=== PATIENT | female | born 1970 | race Caucasian/White ===

== ENCOUNTER 2022-08-20 11:39 | Inpatient (IN) | payer BC ==
[~2022-08-20] VITALS: Ht 167.6 cm; Wt 61.4 kg
[~2022-08-20 11:39] MED LIST: DOXY100C76 PO; LEVO50TA PO; TRAN650T2 PO
[2022-08-20] MEDS ORDERED: normal saline 1000ML IV soln IVB ONE ×2 (11:45→13:50)
[2022-08-20] MEDS ORDERED: ondansetron/PF 4mg/2ml inj IV ONE (11:45)
[2022-08-20 12:06] LABS: BASOPHILS % (AUTO) 0.7 % (0-1); EOSINOPHILS # (AUTO) 0.1 X10'3 (0-0.9); EOSINOPHILS % (AUTO) 1.7 % (0-6); HEMATOCRIT 40.7 % (35.0-45.0); HEMOGLOBIN 13.8 g/dl (12.0-16.0); LYMPHOCYTES # (AUTO) 2.4 X10'3 (1.1-4.8); LYMPHOCYTES % (AUTO) 36.2 % (21-51); MEAN CORPUSCULAR HEMOGLOBIN 29.6 PG (27.0-31.0); MEAN CORPUSCULAR HGB CONC 34.1 g/dL (33.0-36.5); MEAN CORPUSCULAR VOLUME 86.8 FL (78-98); MEAN PLATELET VOLUME 7.3 FL (7.4-10.4); MONOCYTES # (AUTO) 0.5 X10'3 (0-0.9); MONOCYTES % (AUTO) 7.7 % (2-12); NEUTROPHILS # (AUTO) 3.5 X10'3 (1.8-7.7); NEUTROPHILS % (AUTO) 53.7 % (42-75); PLATELET COUNT 398 X10'3 (140-440); RED BLOOD COUNT 4.69 X10'6 (4.20-5.60); RED CELL DISTRIBUTION WIDTH 12.3 % (11.5-14.5); WHITE BLOOD COUNT 6.5 X10'3 (4.5-11.0)
[2022-08-20 12:13] LABS: D-DIMER 0.32 MG/L FEU (0-0.50)
[2022-08-20 12:17] LABS: ALANINE AMINOTRANSFERASE 33 U/L (12-78); ALBUMIN 3.9 G/DL (3.4-5.0); ALBUMIN/GLOBULIN RATIO 1.2 (1.1-1.5); ALKALINE PHOSPHATASE 86 IU/L (46-116); ANION GAP 8 (8-16); ASPARTATE AMINO TRANSFERASE 28 U/L (10-37); BILIRUBIN,TOTAL 0.3 MG/DL (0.1-1.0); BLOOD UREA NITROGEN 15 MG/DL (7-18); BUN/CREATININE RATIO 25.4 (6.6-38.0); CHLORIDE 102 MMOL/L (99-107); CREATININE 0.59 MG/DL (0.40-0.90); GLUCOSE 101 MG/DL (70-104); POTASSIUM 3.5 MMOL/L (3.5-5.1); SODIUM 136 MMOL/L (135-145); TOTAL CARBON DIOXIDE 25.9 MMOL/L (24-32); TOTAL PROTEIN 7.2 G/DL (6.4-8.2); eGFR > 90 ML/MIN
[2022-08-20] MEDS ORDERED: LEVO25TA7 PO (14:25)
[2022-08-20] MEDS ORDERED: ZOLP10TA PO (14:25)
[2022-08-20 14:36] LABS: CLARITY,URINE CLEAR (Clear); GLUCOSE, URINE NEGATIVE (Neg); KETONES,URINE NEGATIVE (Neg); LEUKOCYTE ESTERASE ,URINE TRACE (Neg); NITRITES, URINE NEGATIVE (Neg); OCCULT BLOOD,URINE MODERATE (Neg); PH,URINE 6.5 (4.8-8.0); PROTEIN,URINE NEGATIVE (Neg); UROBILINOGEN,URINE 0.2 E.U/dL (0.2-1.0)
[2022-08-20 14:37] LABS: COLOR,URINE STRAW (Yellow); UA COLLECTION TYPE CLN CATCH MIDSTREAM
[2022-08-20 14:49] LABS: BACTERIA,URINE 1+ /HPF (Neg); MUCUS STRANDS NONE SEEN /LPF (Neg); SQUAMOUS EPITHELIAL CELL,UR FEW /LPF (FEW); WBC,URINE 0-4 /HPF (0-4)
[2022-08-20] MEDS ORDERED: magnesium 4gm in 100ml NS 100 ML IV PRN (15:15)
[2022-08-20] MEDS ORDERED: acetaminophen 325mg tablet PO PRN ×2 (15:15→22:00)
[2022-08-20] MEDS ORDERED: zolpidem 5mg tablet PO PRN (15:15)
[2022-08-20] MEDS ORDERED: potassium Cl 40MEQ/1/2NS 520ml 520 ML IV PRN (15:15)
[2022-08-20] MEDS ORDERED: ondansetron/PF 4mg/2ml inj IV PRN (15:15)
[2022-08-20] MEDS ORDERED: docusate sod 100mg capsule PO PRN (15:15)
[2022-08-20] MEDS ORDERED: mag hydrox/Alum hydrox/simeth 30ml oral suspension PO PRN (15:15)
[2022-08-20] MEDS ORDERED: potassium Cl 20 mEq SR tablet PO PRN ×2 (15:15)
[2022-08-20 20:00] VITALS: BP 124/78
[2022-08-20] MEDS ORDERED: K and/or MAG REPLACEMENT MC SCH (20:00)
[2022-08-20] MEDS ORDERED: TYPE IN GENERIC & BRAND NAME OF PATIENT MED STRENGTH & FORM PO SCH (21:00)
--- NOTE | 2022-08-20 23:35 | NUR ---
Tele Neuro completed at this time.
[2022-08-21] VITALS: BP_SYST 108; BP_SYST 114; BP_SYST 119; BP_DIAS 71; BP_DIAS 73; BP_DIAS 74
--- NOTE | 2022-08-21 00:04 | NUR ---
Paged MD Albert with recommendation from Tele Neuro MD Avila for a CTA of head and neck to see if he would like the order placed tonight.
[2022-08-21 06:20] LABS: EOSINOPHILS # (AUTO) 0.2 X10'3 (0-0.9); EOSINOPHILS % (AUTO) 4.7 % (0-6); HEMATOCRIT 37.6 % (35.0-45.0); HEMOGLOBIN 12.3 g/dl (12.0-16.0); LYMPHOCYTES # (AUTO) 1.4 X10'3 (1.1-4.8); LYMPHOCYTES % (AUTO) 41.8 % (21-51); MEAN CORPUSCULAR HEMOGLOBIN 28.9 PG (27.0-31.0); MEAN CORPUSCULAR HGB CONC 32.7 g/dL (33.0-36.5); MEAN CORPUSCULAR VOLUME 88.4 FL (78-98); MEAN PLATELET VOLUME 7.3 FL (7.4-10.4); MONOCYTES # (AUTO) 0.3 X10'3 (0-0.9); MONOCYTES % (AUTO) 9.3 % (2-12); NEUTROPHILS # (AUTO) 1.4 X10'3 (1.8-7.7); NEUTROPHILS % (AUTO) 43.2 % (42-75); PLATELET COUNT 325 X10'3 (140-440); RED BLOOD COUNT 4.26 X10'6 (4.20-5.60); RED CELL DISTRIBUTION WIDTH 12.3 % (11.5-14.5); WHITE BLOOD COUNT 3.3 X10'3 (4.5-11.0)
[2022-08-21 06:39] LABS: ALANINE AMINOTRANSFERASE 29 U/L (12-78); ALBUMIN 3.2 G/DL (3.4-5.0); ALBUMIN/GLOBULIN RATIO 1.1 (1.1-1.5); ALKALINE PHOSPHATASE 78 IU/L (46-116); ANION GAP 4 (8-16); ASPARTATE AMINO TRANSFERASE 23 U/L (10-37); BILIRUBIN,TOTAL 0.3 MG/DL (0.1-1.0); BLOOD UREA NITROGEN 11 MG/DL (7-18); BUN/CREATININE RATIO 19.6 (6.6-38.0); CALCIUM 8.7 MG/DL (8.5-10.1); CHLORIDE 105 MMOL/L (99-107); CREATININE 0.56 MG/DL (0.40-0.90); GLUCOSE 87 MG/DL (70-104); MAGNESIUM 1.8 MG/DL (1.5-2.4); POTASSIUM 3.8 MMOL/L (3.5-5.1); SODIUM 139 MMOL/L (135-145); TOTAL PROTEIN 6.2 G/DL (6.4-8.2); eGFR > 90 ML/MIN
[2022-08-21 07:00] VITALS: BP 104/65
[2022-08-21] MEDS ORDERED: levoTHYROXINE 25mcg tablet PO SCH (07:00)
[2022-08-21] MEDS ORDERED: DOXYCYCLINE 100MG CAPSULE PO SCH (08:00)
== END 2022-08-21 11:45 | disposition home or self-care (01) | DRG 301 ==
LOC: ER 11:40 → MERGE 15:25 → ED HOLD 15:25 → EDBEDREQ 19:17 → PCU 3S 19:40
PROVIDERS: ADMIT Family Medicine; ATTEND Family Medicine
DX: I78.0 Hereditary hemorrhagic telangiectasia (principal); R00.0 Tachycardia, unspecified; Z79.899 Other long term (current) drug therapy; Z82.49 Family history of ischemic heart disease and other diseases of the circulatory system; Z87.891 Personal history of nicotine dependence; Z88.0 Allergy status to penicillin; Z88.8 Allergy status to other drugs, medicaments and biological substances
CPT/HCPCS: 36415; 70450; 70544; 70551; 71045; 80053; 81001; 82948; 83735; 84484; 85025; 85379; 87077; 87081; 87088; 87186; 93005; 93306; 96361; 96374; 99291; G0378; J2405; J7030

== ENCOUNTER 2022-09-02 13:44 | Outpatient (CLI) | payer BC ==
[~2022-09-02 13:44] MED LIST changes: +LEVO25TA7 PO; -LEVO50TA PO; +ZOLP10TA PO
[2022-09-02 14:22] LABS: BASOPHILS % (AUTO) 0.5 % (0-1); EOSINOPHILS # (AUTO) 0.1 X10'3 (0-0.9); EOSINOPHILS % (AUTO) 1.9 % (0-6); HEMATOCRIT 38.6 % (35.0-45.0); HEMOGLOBIN 12.6 g/dl (12.0-16.0); LYMPHOCYTES # (AUTO) 1.4 X10'3 (1.1-4.8); LYMPHOCYTES % (AUTO) 24.4 % (21-51); MEAN CORPUSCULAR HEMOGLOBIN 28.7 PG (27.0-31.0); MEAN CORPUSCULAR HGB CONC 32.6 g/dL (33.0-36.5); MEAN CORPUSCULAR VOLUME 88.1 FL (78-98); MEAN PLATELET VOLUME 7.5 FL (7.4-10.4); MONOCYTES # (AUTO) 0.4 X10'3 (0-0.9); MONOCYTES % (AUTO) 7.5 % (2-12); NEUTROPHILS # (AUTO) 3.8 X10'3 (1.8-7.7); NEUTROPHILS % (AUTO) 65.7 % (42-75); PLATELET COUNT 305 X10'3 (140-440); RED BLOOD COUNT 4.38 X10'6 (4.20-5.60); RED CELL DISTRIBUTION WIDTH 12.6 % (11.5-14.5); WHITE BLOOD COUNT 5.8 X10'3 (4.5-11.0)
[2022-09-02 14:32] LABS: % IRON SATURATION 23 % (11-46); IRON 59 UG/DL (49-151); TOTAL IRON BINDING CAPACITY 257 UG/DL (259-388)
[2022-09-02 14:40] LABS: FERRITIN 122 NG/ML (8-252)
== END 2022-09-02 23:59 | disposition home or self-care (01) ==
LOC: LAB 13:44
PROVIDERS: ATTEND Family Medicine
DX: I78.0 Hereditary hemorrhagic telangiectasia (principal); R53.83 Other fatigue; R55 Syncope and collapse; D50.0 Iron deficiency anemia secondary to blood loss (chronic)
CPT/HCPCS: 36415; 82728; 83540; 83550; 85025

== ENCOUNTER 2022-10-03 10:54 | Outpatient (CLI) | payer BC ==
[2022-10-03 11:30] LABS: BASOPHILS % (AUTO) 0.8 % (0-1); EOSINOPHILS # (AUTO) 0.1 X10'3 (0-0.9); EOSINOPHILS % (AUTO) 1.8 % (0-6); HEMATOCRIT 40.6 % (35.0-45.0); HEMOGLOBIN 13.5 g/dl (12.0-16.0); LYMPHOCYTES # (AUTO) 1.2 X10'3 (1.1-4.8); LYMPHOCYTES % (AUTO) 25.6 % (21-51); MEAN CORPUSCULAR HEMOGLOBIN 29.4 PG (27.0-31.0); MEAN CORPUSCULAR HGB CONC 33.2 g/dL (33.0-36.5); MEAN CORPUSCULAR VOLUME 88.3 FL (78-98); MEAN PLATELET VOLUME 7.2 FL (7.4-10.4); MONOCYTES # (AUTO) 0.4 X10'3 (0-0.9); MONOCYTES % (AUTO) 7.3 % (2-12); NEUTROPHILS # (AUTO) 3.1 X10'3 (1.8-7.7); NEUTROPHILS % (AUTO) 64.5 % (42-75); PLATELET COUNT 329 X10'3 (140-440); RED CELL DISTRIBUTION WIDTH 13.3 % (11.5-14.5); WHITE BLOOD COUNT 4.8 X10'3 (4.5-11.0)
[2022-10-03 11:46] LABS: % IRON SATURATION 19 % (11-46); IRON 55 UG/DL (49-151); TOTAL IRON BINDING CAPACITY 297 UG/DL (259-388)
[2022-10-03 11:59] LABS: FERRITIN 33 NG/ML (8-252)
== END 2022-10-03 23:59 | disposition home or self-care (01) ==
LOC: LAB 10:54
PROVIDERS: ATTEND Family Medicine
DX: I78.0 Hereditary hemorrhagic telangiectasia (principal); R53.83 Other fatigue; D50.0 Iron deficiency anemia secondary to blood loss (chronic); R55 Syncope and collapse
CPT/HCPCS: 36415; 82728; 83540; 83550; 85025

== ENCOUNTER 2022-10-04 09:52 | Day surgery (SDC) | payer BC ==
[2022-10-04] VITALS (7 sets, daily range): BP systolic 105–114; BP diastolic 62–73
[~2022-10-04] VITALS: Ht 167.6 cm; Wt 61.4 kg
[2022-10-04] MEDS ORDERED: methylPREDNISolone sod succ 125mg/2ml vial IV ONE (10:45)
[2022-10-04] MEDS ORDERED: iron sucrose complex (VENOFER) 200 MG in NS 100ml IV IV ONE (10:50)
[2022-10-04] MEDS ORDERED: diphenhydrAMINE 25mg capsule PO ONE (10:50)
--- NOTE | 2022-10-04 12:45 | NUR ---
pt discharged in stable condition. piv dc'd canula intact. all belongings sent home with pt. no s/s allergic rx. all belongings sent home with pt. pt ambulated to private vehicle driven by after the procedure.
== END 2022-10-04 12:45 | disposition home or self-care (01) ==
LOC: SSTAY O 09:52
PROVIDERS: ATTEND Family Medicine
DX: R55 Syncope and collapse (principal); I78.0 Hereditary hemorrhagic telangiectasia; Z88.8 Allergy status to other drugs, medicaments and biological substances
CPT/HCPCS: 96374; J1756; J2930; J3490; Q0163

== ENCOUNTER 2022-10-22 08:18 | Outpatient (CLI) | payer BC ==
[2022-10-22 08:54] LABS: BASOPHILS % (AUTO) 1.1 % (0-1); EOSINOPHILS # (AUTO) 0.2 X10'3 (0-0.9); EOSINOPHILS % (AUTO) 5.4 % (0-6); HEMATOCRIT 40.7 % (35.0-45.0); HEMOGLOBIN 13.5 g/dl (12.0-16.0); LYMPHOCYTES % (AUTO) 29.2 % (21-51); MEAN CORPUSCULAR HGB CONC 33.1 g/dL (33.0-36.5); MEAN CORPUSCULAR VOLUME 87.8 FL (78-98); MEAN PLATELET VOLUME 7.4 FL (7.4-10.4); MONOCYTES # (AUTO) 0.3 X10'3 (0-0.9); MONOCYTES % (AUTO) 8.5 % (2-12); NEUTROPHILS # (AUTO) 1.9 X10'3 (1.8-7.7); NEUTROPHILS % (AUTO) 55.8 % (42-75); PLATELET COUNT 341 X10'3 (140-440); RED BLOOD COUNT 4.64 X10'6 (4.20-5.60); RED CELL DISTRIBUTION WIDTH 12.8 % (11.5-14.5); WHITE BLOOD COUNT 3.4 X10'3 (4.5-11.0)
[2022-10-22 09:29] LABS: ALANINE AMINOTRANSFERASE 29 U/L (12-78); ALBUMIN 3.9 G/DL (3.4-5.0); ALBUMIN/GLOBULIN RATIO 1.2 (1.1-1.5); ALKALINE PHOSPHATASE 100 IU/L (46-116); ANION GAP 8 (8-16); ASPARTATE AMINO TRANSFERASE 19 U/L (10-37); BILIRUBIN,TOTAL 0.5 MG/DL (0.1-1.0); BLOOD UREA NITROGEN 17 MG/DL (7-18); BUN/CREATININE RATIO 28.8 (6.6-38.0); CALCIUM 9.2 MG/DL (8.5-10.1); CHLORIDE 103 MMOL/L (99-107); CREATININE 0.59 MG/DL (0.40-0.90); FERRITIN 68 NG/ML (8-252); GLUCOSE 73 MG/DL (70-104); POTASSIUM 4.4 MMOL/L (3.5-5.1); SODIUM 139 MMOL/L (135-145); TOTAL CARBON DIOXIDE 28.5 MMOL/L (24-32); TOTAL PROTEIN 7.1 G/DL (6.4-8.2); eGFR > 90 ML/MIN
== END 2022-10-22 23:59 | disposition home or self-care (01) ==
LOC: LAB 08:18
PROVIDERS: ATTEND Nurse Practitioner Acute Care
DX: I78.0 Hereditary hemorrhagic telangiectasia (principal)
CPT/HCPCS: 36415; 80053; 82728; 85025

== ENCOUNTER 2022-12-18 11:20 | Outpatient (CLI) | payer BC | END 2022-12-18 23:59 | disposition home or self-care (01) | LOC: RAD 11:20 | PROVIDERS: ATTEND Podiatrist Foot & Ankle Surgery | DX: M25.872 Other specified joint disorders, left ankle and foot (principal); M79.672 Pain in left foot; M20.42 Other hammer toe(s) (acquired), left foot; M21.6X2 Other acquired deformities of left foot; M25.375 Other instability, left foot; G57.62 Lesion of plantar nerve, left lower limb; M20.11 Hallux valgus (acquired), right foot; M79.671 Pain in right foot; M20.41 Other hammer toe(s) (acquired), right foot; M20.12 Hallux valgus (acquired), left foot; Z68.22 Body mass index [BMI] 22.0-22.9, adult; Z98.890 Other specified postprocedural states | CPT/HCPCS: 73721 ==

== ENCOUNTER 2023-01-27 08:02 | Outpatient (CLI) | payer BC ==
[2023-01-27 08:51] LABS: BASOPHILS % (AUTO) 0.9 % (0-1); EOSINOPHILS # (AUTO) 0.4 X10'3 (0-0.9); EOSINOPHILS % (AUTO) 8.4 % (0-6); HEMATOCRIT 41.1 % (35.0-45.0); HEMOGLOBIN 13.4 g/dl (12.0-16.0); LYMPHOCYTES # (AUTO) 1.3 X10'3 (1.1-4.8); LYMPHOCYTES % (AUTO) 30.7 % (21-51); MEAN CORPUSCULAR HEMOGLOBIN 28.8 PG (27.0-31.0); MEAN CORPUSCULAR HGB CONC 32.6 g/dL (33.0-36.5); MEAN CORPUSCULAR VOLUME 88.5 FL (78-98); MEAN PLATELET VOLUME 7.5 FL (7.4-10.4); MONOCYTES # (AUTO) 0.3 X10'3 (0-0.9); MONOCYTES % (AUTO) 6.9 % (2-12); NEUTROPHILS # (AUTO) 2.3 X10'3 (1.8-7.7); NEUTROPHILS % (AUTO) 53.1 % (42-75); PLATELET COUNT 371 X10'3 (140-440); RED BLOOD COUNT 4.64 X10'6 (4.20-5.60); RED CELL DISTRIBUTION WIDTH 14.1 % (11.5-14.5); WHITE BLOOD COUNT 4.4 X10'3 (4.5-11.0)
[2023-01-27 08:59] LABS: CLARITY,URINE CLEAR (Clear); COLOR,URINE STRAW (Yellow); GLUCOSE, URINE NEGATIVE (Neg); KETONES,URINE NEGATIVE (Neg); LEUKOCYTE ESTERASE ,URINE NEGATIVE (Neg); NITRITES, URINE NEGATIVE (Neg); OCCULT BLOOD,URINE SMALL (Neg); PROTEIN,URINE NEGATIVE (Neg); UROBILINOGEN,URINE 0.2 E.U/dL (0.2-1.0)
[2023-01-27 09:18] LABS: UA COLLECTION TYPE CLN CATCH MIDSTREAM
[2023-01-27 09:19] LABS: BACTERIA,URINE FEW /HPF (Neg); SQUAMOUS EPITHELIAL CELL,UR MODERATE /LPF (FEW); TRANSITIONAL EPI CELLS,URINE FEW /HPF
[2023-01-27 09:20] LABS: ALANINE AMINOTRANSFERASE 26 U/L (12-78); ALBUMIN/GLOBULIN RATIO 1.2 (1.1-1.5); ALKALINE PHOSPHATASE 116 IU/L (46-116); ANION GAP 8 (8-16); ASPARTATE AMINO TRANSFERASE 20 U/L (10-37); BILIRUBIN,TOTAL 0.5 MG/DL (0.1-1.0); BLOOD UREA NITROGEN 14 MG/DL (7-18); BUN/CREATININE RATIO 22.6 (10.0-20.0); CALCIUM 9.3 MG/DL (8.5-10.1); CHLORIDE 100 MMOL/L (99-107); CHOL/HDL RATIO 2.1 (0.00-4.99); CHOLESTEROL 206 MG/DL (0-200); CREATININE 0.62 MG/DL (0.40-0.90); GLUCOSE 75 MG/DL (70-104); HDL CHOLESTEROL 97 MG/DL (35-60); LDL CHOLESTEROL 92 MG/DL (50-100); POTASSIUM 3.9 MMOL/L (3.5-5.1); SODIUM 136 MMOL/L (135-145); TOTAL CARBON DIOXIDE 28.5 MMOL/L (24-32); TOTAL PROTEIN 7.4 G/DL (6.4-8.2); TRIGLYCERIDES 55 MG/DL (20-135); WBC,URINE 0-4 /HPF (0-4); eGFR > 90 ML/MIN
[2023-01-27 10:01] LABS: % IRON SATURATION 20 % (11-46); IRON 68 UG/DL (49-151); TOTAL IRON BINDING CAPACITY 335 UG/DL (259-388)
[2023-01-27 10:19] LABS: FERRITIN 17 NG/ML (8-252)
[2023-01-28 12:52] LABS: ESTRADIOL 43.8 pg/mL (.); FSH, SERUM 84.1 mIU/mL (.); THIIODOTHRONINE, FREE, SERUM 3.5 pg/mL (2.0-4.4)
[2023-01-30 17:14] LABS: TESTOSTERONE, FREE, DIRECT 0.8 pg/mL (0.0-4.2)
== END 2023-01-27 23:59 | disposition home or self-care (01) ==
LOC: LAB 08:02
PROVIDERS: ATTEND Physician Assistant Medical
DX: E03.9 Hypothyroidism, unspecified (principal); N95.1 Menopausal and female climacteric states; E55.9 Vitamin D deficiency, unspecified; D64.9 Anemia, unspecified; N39.0 Urinary tract infection, site not specified; E53.9 Vitamin B deficiency, unspecified
CPT/HCPCS: 36415; 80053; 80061; 81001; 82306; 82607; 82627; 82670; 82728; 83001; 83540; 83550; 84402; 84403; 84439; 84443; 84481; 85025

== ENCOUNTER 2023-03-03 08:57 | Outpatient (CLI) | payer BC ==
[2023-03-03 09:33] LABS: BASOPHILS # (AUTO) 0.1 X10'3 (0-0.2); BASOPHILS % (AUTO) 1.2 % (0-1); EOSINOPHILS # (AUTO) 0.2 X10'3 (0-0.9); EOSINOPHILS % (AUTO) 5.3 % (0-6); HEMATOCRIT 41.1 % (35.0-45.0); HEMOGLOBIN 13.4 g/dl (12.0-16.0); LYMPHOCYTES # (AUTO) 1.4 X10'3 (1.1-4.8); LYMPHOCYTES % (AUTO) 31.6 % (21-51); MEAN CORPUSCULAR HEMOGLOBIN 28.5 PG (27.0-31.0); MEAN CORPUSCULAR HGB CONC 32.5 g/dL (33.0-36.5); MEAN CORPUSCULAR VOLUME 87.7 FL (78-98); MEAN PLATELET VOLUME 7.4 FL (7.4-10.4); MONOCYTES # (AUTO) 0.4 X10'3 (0-0.9); NEUTROPHILS # (AUTO) 2.4 X10'3 (1.8-7.7); NEUTROPHILS % (AUTO) 53.9 % (42-75); PLATELET COUNT 368 X10'3 (140-440); RED BLOOD COUNT 4.69 X10'6 (4.20-5.60); RED CELL DISTRIBUTION WIDTH 13.3 % (11.5-14.5); WHITE BLOOD COUNT 4.4 X10'3 (4.5-11.0)
[2023-03-03 10:02] LABS: FERRITIN 11 NG/ML (8-252)
[2023-03-03 10:20] LABS: % IRON SATURATION 15 % (11-46); IRON 49 UG/DL (49-151); TOTAL IRON BINDING CAPACITY 337 UG/DL (259-388)
== END 2023-03-03 23:59 | disposition home or self-care (01) ==
LOC: LAB 08:57
PROVIDERS: ATTEND Family Medicine
DX: D50.0 Iron deficiency anemia secondary to blood loss (chronic) (principal)
CPT/HCPCS: 36415; 82728; 83540; 83550; 85025

== ENCOUNTER 2023-03-31 07:53 | Outpatient (CLI) | payer BC ==
[~2023-03-31 07:53] MED LIST changes: +DOXY-356 PO; -DOXY100C76 PO
[2023-03-31 08:22] LABS: BASOPHILS % (AUTO) 1.1 % (0-1); EOSINOPHILS # (AUTO) 0.3 X10'3 (0-0.9); EOSINOPHILS % (AUTO) 6.6 % (0-6); HEMATOCRIT 40.6 % (35.0-45.0); HEMOGLOBIN 13.3 g/dl (12.0-16.0); LYMPHOCYTES # (AUTO) 1.3 X10'3 (1.1-4.8); LYMPHOCYTES % (AUTO) 31.8 % (21-51); MEAN CORPUSCULAR HEMOGLOBIN 29.2 PG (27.0-31.0); MEAN CORPUSCULAR HGB CONC 32.8 g/dL (33.0-36.5); MEAN PLATELET VOLUME 7.2 FL (7.4-10.4); MONOCYTES # (AUTO) 0.4 X10'3 (0-0.9); MONOCYTES % (AUTO) 10.2 % (2-12); NEUTROPHILS % (AUTO) 50.3 % (42-75); PLATELET COUNT 319 X10'3 (140-440); RED BLOOD COUNT 4.56 X10'6 (4.20-5.60); RED CELL DISTRIBUTION WIDTH 13.6 % (11.5-14.5)
[2023-03-31 08:58] LABS: % IRON SATURATION 16 % (11-46); IRON 47 UG/DL (49-151); TOTAL IRON BINDING CAPACITY 291 UG/DL (259-388)
[2023-03-31 09:13] LABS: FERRITIN 43 NG/ML (8-252)
== END 2023-03-31 23:59 | disposition home or self-care (01) ==
LOC: LAB 07:53
PROVIDERS: ATTEND Family Medicine
DX: D50.0 Iron deficiency anemia secondary to blood loss (chronic) (principal)
CPT/HCPCS: 36415; 82728; 83540; 83550; 85025

== ENCOUNTER 2023-04-24 08:03 | Day surgery (SDC) | payer BC ==
[~2023-04-24] VITALS: Ht 167.6 cm; Wt 59.1 kg
[2023-04-24] VITALS (7 sets, daily range): BP systolic 105–118; BP diastolic 56–78; PULSE 83–93; RESP 20; TEMP 97.9; O2SAT 95–98
[~2023-04-24 08:03] MED LIST changes: -ZOLP10TA PO
[2023-04-24] MEDS ORDERED: iron sucrose complex (VENOFER) 200 MG in NS 100ml IV IV ONE (10:15)
[2023-04-24] MEDS ORDERED: LORazepam 2 mg/ml vial IV ONE (10:15)
[2023-04-24] MEDS ORDERED: methylPREDNISolone sod succ 125mg/2ml vial IV ONE (10:15)
[2023-04-24] MEDS ORDERED: diphenhydrAMINE 50 mg/ml inj IV ONE (10:15)
== END 2023-04-24 12:40 | disposition home or self-care (01) ==
LOC: SSTAY O 08:03
PROVIDERS: ATTEND Family Medicine
DX: I78.0 Hereditary hemorrhagic telangiectasia (principal); D50.0 Iron deficiency anemia secondary to blood loss (chronic)
CPT/HCPCS: 36410; 96365; 96368; J1200; J1756; J2060; J2930; J3490; J7030

== ENCOUNTER 2023-06-11 10:23 | Outpatient (CLI) | payer BC ==
[2023-06-11 11:31] LABS: BASOPHILS # (AUTO) 0.1 X10'3 (0-0.2); BASOPHILS % (AUTO) 1.2 % (0-1); EOSINOPHILS # (AUTO) 0.1 X10'3 (0-0.9); EOSINOPHILS % (AUTO) 3.2 % (0-6); HEMATOCRIT 40.7 % (35.0-45.0); HEMOGLOBIN 13.4 g/dl (12.0-16.0); LYMPHOCYTES # (AUTO) 1.5 X10'3 (1.1-4.8); LYMPHOCYTES % (AUTO) 34.1 % (21-51); MEAN CORPUSCULAR VOLUME 87.8 FL (78-98); MEAN PLATELET VOLUME 7.4 FL (7.4-10.4); MONOCYTES # (AUTO) 0.3 X10'3 (0-0.9); NEUTROPHILS # (AUTO) 2.3 X10'3 (1.8-7.7); NEUTROPHILS % (AUTO) 53.5 % (42-75); PLATELET COUNT 328 X10'3 (140-440); RED BLOOD COUNT 4.63 X10'6 (4.20-5.60); RED CELL DISTRIBUTION WIDTH 13.7 % (11.5-14.5); WHITE BLOOD COUNT 4.3 X10'3 (4.5-11.0)
[2023-06-11 11:51] LABS: % IRON SATURATION 24 % (11-46); IRON 71 UG/DL (49-151); TOTAL IRON BINDING CAPACITY 298 UG/DL (259-388)
[2023-06-11 11:59] LABS: FERRITIN 26 NG/ML (8-252)
== END 2023-06-11 23:59 | disposition home or self-care (01) ==
LOC: LAB 10:23
PROVIDERS: ATTEND Family Medicine
DX: D50.0 Iron deficiency anemia secondary to blood loss (chronic) (principal)
CPT/HCPCS: 36415; 82728; 83540; 83550; 85025

== ENCOUNTER 2023-08-14 10:37 | Day surgery (SDC) | payer BC ==
[~2023-08-14] VITALS: Ht 167.6 cm; Wt 59.0 kg
[2023-08-14] VITALS (8 sets, daily range): BP systolic 105–134; BP diastolic 52–78; PULSE 84–94; RESP 16–20; TEMP 98–98.2; O2SAT 97–98
[2023-08-14] MEDS ORDERED: diphenhydrAMINE 50 mg/ml inj IV PRN (11:10)
[2023-08-14] MEDS ORDERED: iron sucrose complex (VENOFER) 200 MG in NS 100ml IV IV ONE (11:10)
[2023-08-14] MEDS ORDERED: LORazepam 2 mg/ml vial IV PRN (11:10)
[2023-08-14] MEDS ORDERED: methylPREDNISolone sod succ 125mg/2ml vial IV ONE (11:10)
== END 2023-08-14 14:00 | disposition home or self-care (01) ==
LOC: SSTAY O 10:37
PROVIDERS: ATTEND Family Medicine
DX: I78.0 Hereditary hemorrhagic telangiectasia (principal); D50.0 Iron deficiency anemia secondary to blood loss (chronic)
CPT/HCPCS: 96374; J1200; J1756; J2060; J2930; J3490; J7030

== ENCOUNTER → 2023-10-03 | Outpatient (CLI) | payer BC ==
[2023-10-03 11:34] LABS: BASOPHILS # (AUTO) 0.1 X10'3 (0-0.2); BASOPHILS % (AUTO) 1.8 % (0-1); EOSINOPHILS # (AUTO) 0.3 X10'3 (0-0.9); EOSINOPHILS % (AUTO) 7.9 % (0-6); HEMOGLOBIN 14.1 g/dl (12.0-16.0); LYMPHOCYTES # (AUTO) 1.3 X10'3 (1.1-4.8); LYMPHOCYTES % (AUTO) 31.6 % (21-51); MEAN CORPUSCULAR HEMOGLOBIN 28.7 PG (27.0-31.0); MEAN CORPUSCULAR HGB CONC 32.8 g/dL (33.0-36.5); MEAN CORPUSCULAR VOLUME 87.5 FL (78-98); MEAN PLATELET VOLUME 7.9 FL (7.4-10.4); MONOCYTES # (AUTO) 0.3 X10'3 (0-0.9); MONOCYTES % (AUTO) 8.3 % (2-12); NEUTROPHILS # (AUTO) 2.1 X10'3 (1.8-7.7); NEUTROPHILS % (AUTO) 50.4 % (42-75); PLATELET COUNT 379 X10'3 (140-440); RED BLOOD COUNT 4.92 X10'6 (4.20-5.60); RED CELL DISTRIBUTION WIDTH 13.2 % (11.5-14.5); WHITE BLOOD COUNT 4.2 X10'3 (4.5-11.0)
== END | disposition home or self-care (01) ==
LOC: RAD 09:11
PROVIDERS: ATTEND Registered Nurse
DX: Z01.818 Encounter for other preprocedural examination (principal); S91.302A Unspecified open wound, left foot, initial encounter; T81.49XA Infection following a procedure, other surgical site, initial encounter; M19.072 Primary osteoarthritis, left ankle and foot; M25.475 Effusion, left foot; Z98.890 Other specified postprocedural states; M71.072 Abscess of bursa, left ankle and foot; Z79.01 Long term (current) use of anticoagulants; X58.XXXA Exposure to other specified factors, initial encounter; Y93.89 Activity, other specified; Y92.89 Other specified places as the place of occurrence of the external cause; Y99.8 Other external cause status
CPT/HCPCS: 36415; 73718; 85025; 85651; 86140

== ENCOUNTER 2023-10-21 05:28 | Day surgery (SDC) | payer BC ==
[2023-10-21] VITALS (7 sets, daily range): BP systolic 98–117; BP diastolic 61–78; PULSE 70–85; RESP 9–16; TEMP 98.4; O2SAT 96–99
[~2023-10-21] VITALS: Ht 167.6 cm; Wt 61.2 kg
[2023-10-21] MEDS ORDERED: clindamycin-Cleocin 900mg/D5W 50 ML IV ONE (05:30)
[2023-10-21] MEDS ORDERED: ringers solution, lacted 1,000 ML IV SCH (05:30)
[2023-10-21] MEDS ORDERED: famotidine 20mg tablet PO ONE (05:30)
[2023-10-21] MEDS ORDERED: vancomycin 1,000mg inj ONE (06:38)
[2023-10-21] MEDS ORDERED: BUPIVAcaine 2.5mg/ml inj 50ml vial (contains preservative) ONE (06:39)
[2023-10-21 07:15] LABS: BASOPHILS # (AUTO) 0.1 X10'3 (0-0.2); BASOPHILS % (AUTO) 1.5 % (0-1); EOSINOPHILS # (AUTO) 0.4 X10'3 (0-0.9); EOSINOPHILS % (AUTO) 10.4 % (0-6); LYMPHOCYTES # (AUTO) 1.4 X10'3 (1.1-4.8); LYMPHOCYTES % (AUTO) 38.1 % (21-51); MEAN CORPUSCULAR HEMOGLOBIN 28.5 PG (27.0-31.0); MEAN CORPUSCULAR VOLUME 86.5 FL (78-98); MEAN PLATELET VOLUME 7.1 FL (7.4-10.4); MONOCYTES # (AUTO) 0.3 X10'3 (0-0.9); MONOCYTES % (AUTO) 9.5 % (2-12); NEUTROPHILS # (AUTO) 1.5 X10'3 (1.8-7.7); NEUTROPHILS % (AUTO) 40.5 % (42-75); PRE OP HEMATOCRIT 38.1 % (35.0-45.0); PRE OP HEMOGLOBIN 12.6 g/dL (12.0-16.0); PRE OP PLATELET COUNT 310 X10'3 (140-440); PRE OP WHITE BLOOD COUNT 3.7 10'3 (4.8-10.8); RED CELL DISTRIBUTION WIDTH 13.2 % (11.5-14.5)
[2023-10-21] MEDS ORDERED: sevoflurane 250ml liquid IH ONE (07:20)
[2023-10-21] MEDS ORDERED: dexamethasone sod phosphate 10mg/ml inj ONE (07:20)
[2023-10-21] MEDS ORDERED: cloNIDine hcl/PF 100mcg/ml inj ONE (07:25)
[2023-10-21] MEDS ORDERED: fentaNYL/PF 50MCG/1 ML 2ML syringe ONE (07:27)
[2023-10-21] MEDS ORDERED: midazolam 1 mg/ML 2ml injection ONE (07:27)
[2023-10-21 07:29] LABS: PRE OP PROTIME 11.2 SECONDS (9.0-12.0)
[2023-10-21 07:34] LABS: ALBUMIN 3.5 G/DL (3.4-5.0); ALKALINE PHOSPHATASE 74 IU/L (46-116); BLOOD UREA NITROGEN 17 MG/DL (7-18); BUN/CREATININE RATIO 27.4 (10.0-20.0); CHLORIDE 105 MMOL/L (99-107); CREATININE 0.62 MG/DL (0.40-0.90); PRE OP ALT 66 U/L (30-65); PRE OP ANION GAP 4 (8-16); PRE OP AST 31 U/L (10-37); PRE OP BILIRUB, TOTAL 0.4 MG/DL (0.0-1.0); PRE OP GLUCOSE 86 MG/DL (70-104); PRE OP SODIUM 140 MMOL/L (135-145); TOTAL CARBON DIOXIDE 30.6 MMOL/L (24-32); TOTAL PROTEIN 6.9 G/DL (6.4-8.2); eCRCL 96 ML/MIN; eGFR > 90 ML/MIN
[2023-10-21] MEDS ORDERED: propofol inj 20 ML IV ONE (07:44)
[2023-10-21] MEDS ORDERED: LIDOcaine 2% (20mg/ml) 5ml vial ONE (07:44)
[2023-10-21] MEDS ORDERED: ePHEDrine 50MG/ML INJ. ONE (07:49)
[2023-10-21] MEDS ORDERED: ondansetron/PF 4mg/2ml inj ONE (08:16)
== END 2023-10-21 09:14 | disposition home or self-care (01) ==
LOC: PAS 05:28
PROVIDERS: ATTEND Orthopaedic Surgery Orthopaedic Trauma
DX: T81.49XA Infection following a procedure, other surgical site, initial encounter (principal); I78.0 Hereditary hemorrhagic telangiectasia; E03.9 Hypothyroidism, unspecified; Z88.0 Allergy status to penicillin; Z79.899 Other long term (current) drug therapy; Z72.89 Other problems related to lifestyle; Z98.890 Other specified postprocedural states; Z98.818 Other dental procedure status; Y83.8 Other surgical procedures as the cause of abnormal reaction of the patient, or of later complication, without mention of misadventure at the time of the procedure; Y92.89 Other specified places as the place of occurrence of the external cause
CPT/HCPCS: 10180; 36415; 80053; 85025; 85610; 85730; 87070; 87075; 87077; 87102; 87186; A6222; J0735; J1100; J2250; J2405; J2704; J3010; J3370; J3490; J7030; J7120; Z7506; Z7508; Z7512; A4618; A6446; A6449; A7000

== ENCOUNTER 2024-01-31 18:46 | Emergency (ER) | payer BC ==
[~2024-01-31] VITALS: Ht 167.6 cm; Wt 61.4 kg
[2024-01-31 18:48] VITALS: TEMP 98.9
[2024-01-31 19:34] LABS: BASOPHILS % (AUTO) 0.2 % (0-1); EOSINOPHILS # (AUTO) 0.1 X10'3 (0-0.9); EOSINOPHILS % (AUTO) 0.6 % (0-6); HEMATOCRIT 35.5 % (35.0-45.0); HEMOGLOBIN 11.8 g/dl (12.0-16.0); LYMPHOCYTES # (AUTO) 1.8 X10'3 (1.1-4.8); LYMPHOCYTES % (AUTO) 19.6 % (21-51); MEAN CORPUSCULAR HEMOGLOBIN 27.3 PG (27.0-31.0); MEAN CORPUSCULAR HGB CONC 33.2 g/dL (33.0-36.5); MEAN CORPUSCULAR VOLUME 82.4 FL (78-98); MEAN PLATELET VOLUME 7.4 FL (7.4-10.4); MONOCYTES # (AUTO) 0.5 X10'3 (0-0.9); MONOCYTES % (AUTO) 4.9 % (2-12); NEUTROPHILS % (AUTO) 74.7 % (42-75); PLATELET COUNT 445 X10'3 (140-440); RED BLOOD COUNT 4.31 X10'6 (4.20-5.60); RED CELL DISTRIBUTION WIDTH 13.6 % (11.5-14.5); WHITE BLOOD COUNT 9.4 X10'3 (4.5-11.0)
[2024-01-31 19:59] LABS: ALBUMIN 3.5 G/DL (3.4-5.0); ANION GAP 10 (8-16); BLOOD UREA NITROGEN 16 MG/DL (7-18); BUN/CREATININE RATIO 16.3 (10.0-20.0); CALCIUM 8.7 MG/DL (8.5-10.1); CHLORIDE 104 MMOL/L (99-107); CREATININE 0.98 MG/DL (0.40-0.90); GLUCOSE 166 MG/DL (70-104); POTASSIUM 3.4 MMOL/L (3.5-5.1); SODIUM 139 MMOL/L (135-145); TOTAL CARBON DIOXIDE 24.9 MMOL/L (24-32); eCRCL 61 ML/MIN; eGFR 59 ML/MIN
[2024-01-31] MEDS: famotidine/PF 10 mg/ml inj IV ONE (19:59)
[2024-01-31] MEDS: normal saline 1000ml 1,000 ML IV ONE ×2 (19:59→21:23)
[2024-01-31] MEDS: LORazepam 2 mg/ml vial IV ONE ×2 (20:00→21:23)
[2024-01-31] MEDS: diphenhydrAMINE 50 mg/ml inj IV ONE ×2 (20:00→23:19)
[2024-01-31] MEDS: dexamethasone sod phosphate 10mg/ml inj IV STA (20:00)
[2024-01-31 20:24] LABS: MAGNESIUM 1.6 MG/DL (1.5-2.4); THYROID STIMULATING HORMONE 4.53 ulU/ml (0.34-4.50)
[2024-01-31 21:14] LABS: PRO BRAIN NATRIURETIC PEPTIDE < 30 PG/ML (0-125)
[2024-01-31] MEDS ORDERED: PRED20TA PO (22:56)
[2024-01-31 23:36] VITALS: BP 114/78; PULSE 117; RESP 17; O2SAT 99
== END 2024-01-31 23:38 | disposition home or self-care (01) ==
LOC: ER 18:47
DX: L50.9 Urticaria, unspecified (principal); E03.9 Hypothyroidism, unspecified; Z88.0 Allergy status to penicillin; Z91.09 Other allergy status, other than to drugs and biological substances; Z79.2 Long term (current) use of antibiotics; Z79.899 Other long term (current) drug therapy; Z98.890 Other specified postprocedural states
CPT/HCPCS: 36415; 80048; 83735; 83880; 84443; 84484; 85025; 93005; 96361; 96374; 96375; 96376; 99284; J1100; J1200; J2060; J3490; J7030

== ENCOUNTER 2024-02-01 15:33 | Emergency (ER) | payer BC ==
[~2024-02-01] VITALS: Ht 167.6 cm; Wt 62.3 kg
[~2024-02-01 15:33] MED LIST changes: +PRED20TA PO
[2024-02-01 16:33] LABS: BILIRUBIN,URINE NEGATIVE (Neg); COLOR,URINE YELLOW (Yellow); GLUCOSE, URINE NEGATIVE (Neg); KETONES,URINE NEGATIVE (Neg); LEUKOCYTE ESTERASE ,URINE SMALL (Neg); NITRITES, URINE NEGATIVE (Neg); OCCULT BLOOD,URINE SMALL (Neg); PH,URINE 6.5 (4.8-8.0); PROTEIN,URINE NEGATIVE (Neg); UROBILINOGEN,URINE 0.2 E.U/dL (0.2-1.0)
[2024-02-01 16:34] LABS: CLARITY,URINE SLIGHTLY CLOUDY (Clear); UA COLLECTION TYPE CLN CATCH MIDSTREAM
[2024-02-01 16:42] LABS: SQUAMOUS EPITHELIAL CELL,UR MODERATE /LPF (FEW)
[2024-02-01 16:43] LABS: BACTERIA,URINE FEW /HPF (Neg); RBC,URINE 0-2 /HPF (0-2); TRANSITIONAL EPI CELLS,URINE FEW /HPF
[2024-02-01 16:51] LABS: BASOPHILS % (AUTO) 0.3 % (0-1); EOSINOPHILS % (AUTO) 0.6 % (0-6); HEMATOCRIT 32.4 % (35.0-45.0); HEMOGLOBIN 10.7 g/dl (12.0-16.0); LYMPHOCYTES % (AUTO) 26.2 % (21-51); MEAN CORPUSCULAR HEMOGLOBIN 27.3 PG (27.0-31.0); MEAN CORPUSCULAR HGB CONC 33.1 g/dL (33.0-36.5); MEAN CORPUSCULAR VOLUME 82.4 FL (78-98); MEAN PLATELET VOLUME 7.3 FL (7.4-10.4); MONOCYTES # (AUTO) 0.5 X10'3 (0-0.9); NEUTROPHILS % (AUTO) 65.9 % (42-75); PLATELET COUNT 438 X10'3 (140-440); RED BLOOD COUNT 3.93 X10'6 (4.20-5.60); WHITE BLOOD COUNT 7.5 X10'3 (4.5-11.0)
[2024-02-01 16:52] LABS: ALBUMIN 3.6 G/DL (3.4-5.0); ANION GAP 10 (8-16); BLOOD UREA NITROGEN 17 MG/DL (7-18); BUN/CREATININE RATIO 24.6 (10.0-20.0); C-REACTIVE PROTEIN 0.19 MG/DL (0.0-0.5); CALCIUM 8.4 MG/DL (8.5-10.1); CHLORIDE 105 MMOL/L (99-107); CREATININE 0.69 MG/DL (0.40-0.90); GLUCOSE 97 MG/DL (70-104); POTASSIUM 3.2 MMOL/L (3.5-5.1); SODIUM 140 MMOL/L (135-145); TOTAL CARBON DIOXIDE 25.2 MMOL/L (24-32); eCRCL 86 ML/MIN; eGFR 88 ML/MIN
[2024-02-01] MEDS: diphenhydrAMINE 50 mg/ml inj IV ONE (17:05)
[2024-02-01] MEDS: LORazepam 2 mg/ml vial IV ONE (17:06)
[2024-02-01] MEDS: dexamethasone sod phosphate 10mg/ml inj IV STA (17:07)
[2024-02-01 18:07] VITALS: BP 115/69; PULSE 96; RESP 16; TEMP 99; O2SAT 97
== END 2024-02-01 18:09 | disposition home or self-care (01) ==
LOC: ER 15:34
DX: L50.0 Allergic urticaria (principal); E03.9 Hypothyroidism, unspecified; Z88.0 Allergy status to penicillin; Z88.8 Allergy status to other drugs, medicaments and biological substances; Z79.52 Long term (current) use of systemic steroids; Z79.899 Other long term (current) drug therapy
CPT/HCPCS: 36415; 80048; 81001; 83605; 84145; 85025; 85651; 86140; 87040; 87088; 96374; 96375; 99284; J1100; J1200; J2060

== ENCOUNTER → 2024-02-03 | Emergency (ER) | payer BC ==
[~2024-02-03] VITALS: Ht 167.6 cm; Wt 68.2 kg
[~2024-02-03] MED LIST changes: -PRED20TA PO
[2024-02-03] MEDS: LORazepam 2 mg/ml vial IV ONE ×3 (09:16→09:39)
[2024-02-03] MEDS: diphenhydrAMINE 50 mg/ml inj IV ONE (09:16)
[2024-02-03] MEDS: methylPREDNISolone sod succ 125mg/2ml vial IV ONE (09:17)
[2024-02-03] MEDS: normal saline 1000ML IV soln IVB ONE (09:17)
[2024-02-03 09:22] LABS: BASOPHILS % (AUTO) 0.4 % (0-1); EOSINOPHILS # (AUTO) 0.1 X10'3 (0-0.9); HEMATOCRIT 35.2 % (35.0-45.0); HEMOGLOBIN 11.2 g/dl (12.0-16.0); LYMPHOCYTES # (AUTO) 2.3 X10'3 (1.1-4.8); LYMPHOCYTES % (AUTO) 35.2 % (21-51); MEAN CORPUSCULAR HEMOGLOBIN 26.4 PG (27.0-31.0); MEAN CORPUSCULAR HGB CONC 31.8 g/dL (33.0-36.5); MEAN CORPUSCULAR VOLUME 82.9 FL (78-98); MEAN PLATELET VOLUME 7.3 FL (7.4-10.4); MONOCYTES # (AUTO) 0.6 X10'3 (0-0.9); MONOCYTES % (AUTO) 10.1 % (2-12); NEUTROPHILS # (AUTO) 3.4 X10'3 (1.8-7.7); NEUTROPHILS % (AUTO) 53.3 % (42-75); PLATELET COUNT 483 X10'3 (140-440); RED BLOOD COUNT 4.24 X10'6 (4.20-5.60); RED CELL DISTRIBUTION WIDTH 14.2 % (11.5-14.5); WHITE BLOOD COUNT 6.4 X10'3 (4.5-11.0)
[2024-02-03 09:38] LABS: FERRITIN 7 NG/ML (8-252)
[2024-02-03 09:52] LABS: % IRON SATURATION 4 % (11-46); IRON 15 UG/DL (49-151); TOTAL IRON BINDING CAPACITY 378 UG/DL (259-388)
[2024-02-03] MEDS: iron sucrose complex (VENOFER) 200 MG in NS 100ml IV IV ONE (09:53)
[2024-02-03] MEDS: normal saline 1000ml 1,000 ML IV ONE (10:34)
[2024-02-03 11:08] VITALS: TEMP 97.8
[2024-02-03 13:10] VITALS: BP 111/75; PULSE 88; RESP 12; O2SAT 98
== END | disposition home or self-care (01) ==
LOC: ER 08:43
DX: T78.49XA Other allergy, initial encounter (principal); D64.9 Anemia, unspecified; Z88.0 Allergy status to penicillin; Z88.8 Allergy status to other drugs, medicaments and biological substances; Z79.899 Other long term (current) drug therapy; E03.9 Hypothyroidism, unspecified; Z98.890 Other specified postprocedural states; X58.XXXA Exposure to other specified factors, initial encounter
CPT/HCPCS: 36415; 71045; 82728; 83540; 83550; 83605; 84484; 85025; 87040; 87502; 87503; 93005; 96361; 96365; 96375; 99285; J1200; J1756; J2060; J2930; J3490; J7030

== ENCOUNTER 2024-02-05 08:44 | Emergency (ER) | payer BC ==
[~2024-02-05] VITALS: Ht 167.6 cm; Wt 59.0 kg
[2024-02-05 08:48] VITALS: TEMP 98.6
[2024-02-05] MEDS ORDERED: iohexol 350MG/ML 100ml bottle IV ONE (09:20)
[2024-02-05 09:25] LABS: BASOPHILS # (AUTO) 0.1 X10'3 (0-0.2); BASOPHILS % (AUTO) 0.7 % (0-1); EOSINOPHILS # (AUTO) 0.3 X10'3 (0-0.9); EOSINOPHILS % (AUTO) 3.4 % (0-6); HEMATOCRIT 36.1 % (35.0-45.0); HEMOGLOBIN 11.7 g/dl (12.0-16.0); LYMPHOCYTES % (AUTO) 26.9 % (21-51); MEAN CORPUSCULAR HEMOGLOBIN 26.8 PG (27.0-31.0); MEAN CORPUSCULAR HGB CONC 32.5 g/dL (33.0-36.5); MEAN CORPUSCULAR VOLUME 82.5 FL (78-98); MEAN PLATELET VOLUME 7.1 FL (7.4-10.4); MONOCYTES # (AUTO) 0.7 X10'3 (0-0.9); NEUTROPHILS # (AUTO) 4.5 X10'3 (1.8-7.7); PLATELET COUNT 515 X10'3 (140-440); RED BLOOD COUNT 4.38 X10'6 (4.20-5.60); RED CELL DISTRIBUTION WIDTH 14.2 % (11.5-14.5); WHITE BLOOD COUNT 7.4 X10'3 (4.5-11.0)
[2024-02-05 09:41] LABS: ALANINE AMINOTRANSFERASE 31 U/L (12-78); ALBUMIN 3.8 G/DL (3.4-5.0); ALKALINE PHOSPHATASE 98 IU/L (46-116); ANION GAP 5 (8-16); ASPARTATE AMINO TRANSFERASE 16 U/L (10-37); BILIRUBIN,TOTAL 0.2 MG/DL (0.1-1.0); BLOOD UREA NITROGEN 14 MG/DL (7-18); BUN/CREATININE RATIO 21.5 (10.0-20.0); CALCIUM 9.1 MG/DL (8.5-10.1); CHLORIDE 104 MMOL/L (99-107); CREATININE 0.65 MG/DL (0.40-0.90); GLUCOSE 113 MG/DL (70-104); POTASSIUM 3.4 MMOL/L (3.5-5.1); SODIUM 137 MMOL/L (135-145); TOTAL CARBON DIOXIDE 28.1 MMOL/L (24-32); TOTAL PROTEIN 7.6 G/DL (6.4-8.2); eCRCL 91 ML/MIN; eGFR > 90 ML/MIN
[2024-02-05] MEDS: normal saline 1000ml 1,000 ML IV ONE ×2 (09:51→14:26)
[2024-02-05] MEDS: ondansetron/PF 4mg/2ml inj IV ONE (09:51)
[2024-02-05 09:53] LABS: MAGNESIUM 1.8 MG/DL (1.5-2.4); PRO BRAIN NATRIURETIC PEPTIDE 30 PG/ML (0-125)
[2024-02-05 12:00] LABS: BILIRUBIN,URINE NEGATIVE (Neg); CLARITY,URINE CLEAR (Clear); COLOR,URINE YELLOW (Yellow); GLUCOSE, URINE NEGATIVE (Neg); KETONES,URINE NEGATIVE (Neg); LEUKOCYTE ESTERASE ,URINE NEGATIVE (Neg); NITRITES, URINE NEGATIVE (Neg); OCCULT BLOOD,URINE TRACE-INTACT (Neg); PROTEIN,URINE NEGATIVE (Neg); UROBILINOGEN,URINE 0.2 E.U/dL (0.2-1.0)
[2024-02-05 12:05] LABS: UA COLLECTION TYPE CLN CATCH MIDSTREAM
[2024-02-05 12:12] LABS: BACTERIA,URINE NONE SEEN /HPF (Neg); RBC,URINE 0-2 /HPF (0-2); SQUAMOUS EPITHELIAL CELL,UR FEW /LPF (FEW); WBC,URINE NONE SEEN /HPF (0-4)
[2024-02-05 13:03] LABS: FERRITIN 94 NG/ML (8-252)
[2024-02-05] MEDS: methylPREDNISolone sod succ 125mg/2ml vial IV ONE (14:24)
[2024-02-05] MEDS: diphenhydrAMINE 50 mg/ml inj IV ONE (14:24)
[2024-02-05] MEDS: LORazepam 2 mg/ml vial IV ONE (14:25)
[2024-02-05] MEDS: iron sucrose complex injection 200 MG in normal saline 100ml IV soln 100 ML IV ONE (14:45)
[2024-02-05 17:25] VITALS: BP 119/72; PULSE 100; RESP 17; O2SAT 97
[2024-02-06 09:31] LABS: RPR, QUANT. SEE COMMENTS
== END 2024-02-05 17:27 | disposition home or self-care (01) ==
LOC: ER 08:44
DX: E86.0 Dehydration (principal); F41.9 Anxiety disorder, unspecified; E03.9 Hypothyroidism, unspecified; Z88.0 Allergy status to penicillin; Z91.09 Other allergy status, other than to drugs and biological substances; Z79.899 Other long term (current) drug therapy; Z79.2 Long term (current) use of antibiotics; Z98.890 Other specified postprocedural states
CPT/HCPCS: 36415; 71275; 80053; 81001; 82728; 83735; 83880; 84484; 85025; 85651; 86140; 86592; 86617; 86885; 86900; 86901; 93005; 96361; 96365; 96375; 99285; J1200; J1756; J2060; J2405; J2930; J3490; J7030; Q9967

== ENCOUNTER 2024-02-10 14:09 | Outpatient (CLI) | payer BC ==
[2024-02-10 14:43] LABS: BASOPHILS # (AUTO) 0.1 X10'3 (0-0.2); BASOPHILS % (AUTO) 0.8 % (0-1); EOSINOPHILS # (AUTO) 0.3 X10'3 (0-0.9); EOSINOPHILS % (AUTO) 4.5 % (0-6); HEMATOCRIT 37.9 % (35.0-45.0); HEMOGLOBIN 12.1 g/dl (12.0-16.0); LYMPHOCYTES # (AUTO) 1.8 X10'3 (1.1-4.8); LYMPHOCYTES % (AUTO) 29.9 % (21-51); MEAN CORPUSCULAR HEMOGLOBIN 26.6 PG (27.0-31.0); MEAN CORPUSCULAR VOLUME 83.1 FL (78-98); MONOCYTES # (AUTO) 0.5 X10'3 (0-0.9); MONOCYTES % (AUTO) 8.8 % (2-12); NEUTROPHILS # (AUTO) 3.5 X10'3 (1.8-7.7); PLATELET COUNT 460 X10'3 (140-440); RED BLOOD COUNT 4.56 X10'6 (4.20-5.60); RED CELL DISTRIBUTION WIDTH 15.1 % (11.5-14.5); WHITE BLOOD COUNT 6.2 X10'3 (4.5-11.0)
[2024-02-10 15:09] LABS: % IRON SATURATION 12 % (11-46); IRON 44 UG/DL (49-151); TOTAL IRON BINDING CAPACITY 369 UG/DL (259-388)
[2024-02-10 15:15] LABS: FERRITIN 85 NG/ML (8-252)
== END 2024-02-10 23:59 | disposition home or self-care (01) ==
LOC: LAB 14:09
PROVIDERS: ATTEND Family Medicine
DX: D50.0 Iron deficiency anemia secondary to blood loss (chronic) (principal)
CPT/HCPCS: 36415; 82728; 83540; 83550; 85025

== ENCOUNTER 2024-02-12 09:38 | Outpatient (CLI) | payer BC ==
[2024-02-12 10:11] LABS: BASOPHILS # (AUTO) 0.1 X10'3 (0-0.2); BASOPHILS % (AUTO) 1.6 % (0-1); EOSINOPHILS # (AUTO) 0.2 X10'3 (0-0.9); EOSINOPHILS % (AUTO) 3.4 % (0-6); HEMATOCRIT 37.2 % (35.0-45.0); HEMOGLOBIN 11.8 g/dl (12.0-16.0); LYMPHOCYTES # (AUTO) 1.2 X10'3 (1.1-4.8); LYMPHOCYTES % (AUTO) 23.4 % (21-51); MEAN CORPUSCULAR HEMOGLOBIN 26.6 PG (27.0-31.0); MEAN CORPUSCULAR HGB CONC 31.8 g/dL (33.0-36.5); MEAN CORPUSCULAR VOLUME 83.8 FL (78-98); MEAN PLATELET VOLUME 7.1 FL (7.4-10.4); MONOCYTES # (AUTO) 0.5 X10'3 (0-0.9); MONOCYTES % (AUTO) 10.1 % (2-12); NEUTROPHILS # (AUTO) 3.3 X10'3 (1.8-7.7); NEUTROPHILS % (AUTO) 61.5 % (42-75); PLATELET COUNT 370 X10'3 (140-440); RED BLOOD COUNT 4.44 X10'6 (4.20-5.60); RED CELL DISTRIBUTION WIDTH 15.3 % (11.5-14.5); WHITE BLOOD COUNT 5.3 X10'3 (4.5-11.0)
== END 2024-02-12 23:59 | disposition home or self-care (01) ==
LOC: LAB 09:38
PROVIDERS: ATTEND Family Medicine
DX: I78.0 Hereditary hemorrhagic telangiectasia (principal); D50.0 Iron deficiency anemia secondary to blood loss (chronic); R53.83 Other fatigue
CPT/HCPCS: 36415; 82728; 85025

== ENCOUNTER 2024-03-15 10:03 | Outpatient (CLI) | payer BC ==
[2024-03-15 10:34] LABS: BASOPHILS % (AUTO) 1.1 % (0-1); EOSINOPHILS # (AUTO) 0.1 X10'3 (0-0.9); EOSINOPHILS % (AUTO) 2.8 % (0-6); HEMATOCRIT 39.2 % (35.0-45.0); HEMOGLOBIN 12.7 g/dl (12.0-16.0); LYMPHOCYTES # (AUTO) 1.4 X10'3 (1.1-4.8); LYMPHOCYTES % (AUTO) 35.1 % (21-51); MEAN CORPUSCULAR HEMOGLOBIN 26.6 PG (27.0-31.0); MEAN CORPUSCULAR HGB CONC 32.5 g/dL (33.0-36.5); MEAN CORPUSCULAR VOLUME 82.1 FL (78-98); MEAN PLATELET VOLUME 7.6 FL (7.4-10.4); MONOCYTES # (AUTO) 0.3 X10'3 (0-0.9); MONOCYTES % (AUTO) 7.8 % (2-12); NEUTROPHILS # (AUTO) 2.1 X10'3 (1.8-7.7); NEUTROPHILS % (AUTO) 53.2 % (42-75); PLATELET COUNT 370 X10'3 (140-440); RED BLOOD COUNT 4.78 X10'6 (4.20-5.60); RED CELL DISTRIBUTION WIDTH 16.2 % (11.5-14.5)
== END 2024-03-15 23:59 | disposition home or self-care (01) ==
LOC: LAB 10:03
PROVIDERS: ATTEND Family Medicine
DX: D50.0 Iron deficiency anemia secondary to blood loss (chronic) (principal); I78.0 Hereditary hemorrhagic telangiectasia; R53.83 Other fatigue
CPT/HCPCS: 36415; 82728; 85025

== ENCOUNTER 2024-03-17 08:13 | Day surgery (SDC) | payer BC ==
[~2024-03-17] VITALS: Ht 167.6 cm; Wt 61.4 kg
[2024-03-17 09:40] VITALS: BP 138/85; PULSE 83; RESP 20; TEMP 98.2; O2SAT 100
[2024-03-17] MEDS: LORazepam 2 mg/ml vial IV PRN (10:01)
[2024-03-17] MEDS: methylPREDNISolone sod succ 125mg/2ml vial IV PRN (10:07)
[2024-03-17] MEDS: diphenhydrAMINE 50 mg/ml inj IV PRN (10:07)
[2024-03-17] MEDS: iron sucrose complex (VENOFER) 200 MG in NS 100ml IV IV PRN (10:32)
[2024-03-17 10:40] VITALS: BP 115/47; PULSE 83; RESP 20; O2SAT 99
[2024-03-17 11:10] VITALS: BP 107/59; PULSE 89; RESP 16; O2SAT 99
[2024-03-17 11:40] VITALS: BP 107/59; PULSE 88; RESP 16; O2SAT 99
[2024-03-17 12:10] VITALS: BP 107/68; PULSE 90; RESP 16; O2SAT 98
== END 2024-03-17 12:30 | disposition home or self-care (01) ==
LOC: SSTAY O 08:13
PROVIDERS: ATTEND Family Medicine
DX: I78.0 Hereditary hemorrhagic telangiectasia (principal); D50.0 Iron deficiency anemia secondary to blood loss (chronic); F41.9 Anxiety disorder, unspecified; E03.9 Hypothyroidism, unspecified; Z88.0 Allergy status to penicillin; Z79.2 Long term (current) use of antibiotics; Z79.52 Long term (current) use of systemic steroids; Z79.899 Other long term (current) drug therapy
CPT/HCPCS: 96365; 96375; J1200; J1756; J2060; J2919; J7030

== ENCOUNTER 2024-03-22 08:59 | Outpatient (CLI) | payer BC ==
[2024-03-22 09:26] LABS: BASOPHILS % (AUTO) 1.1 % (0-1); EOSINOPHILS # (AUTO) 0.1 X10'3 (0-0.9); EOSINOPHILS % (AUTO) 3.3 % (0-6); HEMATOCRIT 40.4 % (35.0-45.0); HEMOGLOBIN 13.1 g/dl (12.0-16.0); LYMPHOCYTES # (AUTO) 1.3 X10'3 (1.1-4.8); LYMPHOCYTES % (AUTO) 32.1 % (21-51); MEAN CORPUSCULAR HEMOGLOBIN 26.6 PG (27.0-31.0); MEAN CORPUSCULAR HGB CONC 32.4 g/dL (33.0-36.5); MEAN CORPUSCULAR VOLUME 82.2 FL (78-98); MEAN PLATELET VOLUME 7.4 FL (7.4-10.4); MONOCYTES # (AUTO) 0.3 X10'3 (0-0.9); NEUTROPHILS # (AUTO) 2.2 X10'3 (1.8-7.7); NEUTROPHILS % (AUTO) 55.5 % (42-75); PLATELET COUNT 376 X10'3 (140-440); RED BLOOD COUNT 4.92 X10'6 (4.20-5.60); RED CELL DISTRIBUTION WIDTH 16.4 % (11.5-14.5)
[2024-03-22 09:50] LABS: FERRITIN 138 NG/ML (8-252)
[2024-03-22 10:03] LABS: % IRON SATURATION 21 % (11-46); IRON 72 UG/DL (49-151); TOTAL IRON BINDING CAPACITY 342 UG/DL (259-388)
== END 2024-03-22 23:59 | disposition home or self-care (01) ==
LOC: LAB 08:59
PROVIDERS: ATTEND Family Medicine
DX: D50.0 Iron deficiency anemia secondary to blood loss (chronic) (principal)
CPT/HCPCS: 36415; 82728; 83540; 83550; 85025

== ENCOUNTER → 2024-03-26 | Outpatient (CLI) | payer BC ==
[2024-03-26 10:30] LABS: BASOPHILS % (AUTO) 1.3 % (0-1); EOSINOPHILS # (AUTO) 0.1 X10'3 (0-0.9); EOSINOPHILS % (AUTO) 3.4 % (0-6); HEMATOCRIT 39.2 % (35.0-45.0); HEMOGLOBIN 12.6 g/dl (12.0-16.0); LYMPHOCYTES # (AUTO) 1.3 X10'3 (1.1-4.8); LYMPHOCYTES % (AUTO) 37.2 % (21-51); MEAN CORPUSCULAR HEMOGLOBIN 26.5 PG (27.0-31.0); MEAN CORPUSCULAR HGB CONC 32.1 g/dL (33.0-36.5); MEAN CORPUSCULAR VOLUME 82.6 FL (78-98); MEAN PLATELET VOLUME 7.8 FL (7.4-10.4); MONOCYTES # (AUTO) 0.4 X10'3 (0-0.9); MONOCYTES % (AUTO) 11.2 % (2-12); NEUTROPHILS # (AUTO) 1.6 X10'3 (1.8-7.7); NEUTROPHILS % (AUTO) 46.9 % (42-75); PLATELET COUNT 348 X10'3 (140-440); RED BLOOD COUNT 4.75 X10'6 (4.20-5.60); RED CELL DISTRIBUTION WIDTH 16.6 % (11.5-14.5); WHITE BLOOD COUNT 3.4 X10'3 (4.5-11.0)
[2024-03-26 10:38] LABS: HEMOGLOBIN A1C 5.1 % (4.5-6.2)
[2024-03-26 10:58] LABS: CHOL/HDL RATIO 2.6 (0.00-4.99); CHOLESTEROL 208 MG/DL (0-200); FREE T4 (FREE THYROXINE) 0.75 NG/DL (0.73-1.40); HDL CHOLESTEROL 81 MG/DL (35-60); LDL CHOLESTEROL 113 MG/DL (50-100); THYROID STIMULATING HORMONE 1.36 ulU/ml (0.34-4.50); TRIGLYCERIDES 68 MG/DL (20-135)
[2024-03-27 09:56] LABS: ESTRADIOL <5.0 pg/mL (.); LUTEINIZING HORMONE 38.6 mIU/mL (.); PROGESTERONE 0.1 ng/mL (.); TESTOSTERONE, SERUM 9 ng/dL (4-50); THIIODOTHRONINE, FREE, SERUM 3.2 pg/mL (2.0-4.4)
[2024-03-27 16:53] LABS: VITAMIN D, 25-HYDROXY 30.8 ng/mL (30.0-100.0)
== END | disposition home or self-care (01) ==
LOC: LAB 08:53
PROVIDERS: ATTEND Nurse Practitioner Women's Health
DX: Z13.1 Encounter for screening for diabetes mellitus (principal); Z01.419 Encounter for gynecological examination (general) (routine) without abnormal findings; Z13.220 Encounter for screening for lipoid disorders; E55.9 Vitamin D deficiency, unspecified; N95.1 Menopausal and female climacteric states
CPT/HCPCS: 36415; 80061; 82306; 82670; 83001; 83002; 83036; 84144; 84402; 84403; 84439; 84443; 84481; 85025

== ENCOUNTER 2024-05-07 07:49 | Day surgery (SDC) | payer BC ==
[2024-05-06 09:35] LABS: EOSINOPHILS # (AUTO) 0.1 X10'3 (0-0.9); EOSINOPHILS % (AUTO) 3.2 % (0-6); HEMATOCRIT 40.8 % (35.0-45.0); HEMOGLOBIN 13.3 g/dl (12.0-16.0); LYMPHOCYTES # (AUTO) 1.5 X10'3 (1.1-4.8); LYMPHOCYTES % (AUTO) 34.5 % (21-51); MEAN CORPUSCULAR HEMOGLOBIN 26.9 PG (27.0-31.0); MEAN CORPUSCULAR HGB CONC 32.6 g/dL (33.0-36.5); MEAN CORPUSCULAR VOLUME 82.4 FL (78-98); MEAN PLATELET VOLUME 7.2 FL (7.4-10.4); MONOCYTES # (AUTO) 0.4 X10'3 (0-0.9); MONOCYTES % (AUTO) 9.3 % (2-12); NEUTROPHILS # (AUTO) 2.3 X10'3 (1.8-7.7); PLATELET COUNT 394 X10'3 (140-440); RED BLOOD COUNT 4.96 X10'6 (4.20-5.60); RED CELL DISTRIBUTION WIDTH 15.9 % (11.5-14.5); WHITE BLOOD COUNT 4.4 X10'3 (4.5-11.0)
[~2024-05-07] VITALS: Ht 167.6 cm; Wt 90.9 kg
[2024-05-07 09:08] VITALS: BP 114/74; PULSE 80; RESP 16; TEMP 98.4; O2SAT 95
[2024-05-07] MEDS: LORazepam 2 mg/ml vial IV ONE (09:31)
[2024-05-07] MEDS: methylPREDNISolone sod succ 125mg/2ml vial IV ONE (09:31)
[2024-05-07] MEDS: diphenhydrAMINE 50 mg/ml inj IV ONE (09:31)
[2024-05-07] MEDS: iron sucrose complex (VENOFER) 200 MG in NS 100ml IV IV ONE (09:32)
[2024-05-07 12:00] VITALS: BP 109/69; PULSE 73; RESP 16; TEMP 98.9; O2SAT 93
[2024-05-07 14:29] VITALS: RESP 16; O2SAT 98
== END 2024-05-07 12:00 | disposition home or self-care (01) ==
LOC: SSTAY O 07:49
PROVIDERS: ATTEND Family Medicine
DX: I78.0 Hereditary hemorrhagic telangiectasia (principal); D50.0 Iron deficiency anemia secondary to blood loss (chronic); E03.9 Hypothyroidism, unspecified; Z90.49 Acquired absence of other specified parts of digestive tract; Z79.899 Other long term (current) drug therapy; Z98.890 Other specified postprocedural states; Z88.0 Allergy status to penicillin; Z88.1 Allergy status to other antibiotic agents
CPT/HCPCS: 36415; 82728; 85025; 96365; 96375; J1200; J1756; J2060; J2919; J7030

== ENCOUNTER 2024-05-11 07:36 | Day surgery (SDC) | payer BC ==
[~2024-05-11] VITALS: Ht 167.6 cm; Wt 60.2 kg
[~2024-05-11 07:36] MED LIST changes: -DOXY-356 PO; -LEVO25TA7 PO
[2024-05-11 08:09] VITALS: BP 130/81; PULSE 79; RESP 16; TEMP 98.3; O2SAT 100
[2024-05-11] MEDS: LORazepam 2 mg/ml vial IV ONE (08:15)
[2024-05-11] MEDS: methylPREDNISolone sod succ 125mg/2ml vial IV ONE (08:20)
[2024-05-11] MEDS: diphenhydrAMINE 50 mg/ml inj IV ONE (08:22)
[2024-05-11] MEDS ORDERED: diphenhydrAMINE 50 mg/ml inj ONE (08:24)
[2024-05-11] MEDS: iron sucrose complex (VENOFER) 200 MG in NS 100ml IV IV ONE (08:40)
[2024-05-11 09:00] VITALS: BP 140/78; PULSE 99; RESP 16; O2SAT 98
[2024-05-11 09:45] VITALS: BP 128/78; PULSE 77; RESP 16; TEMP 98.2; O2SAT 100
[2024-05-12] MEDS ORDERED: POTA-192 PO (13:00)
== END 2024-05-11 09:45 | disposition home or self-care (01) ==
LOC: SSTAY O 07:36
PROVIDERS: ATTEND Family Medicine
DX: I78.0 Hereditary hemorrhagic telangiectasia (principal); D50.0 Iron deficiency anemia secondary to blood loss (chronic); E03.9 Hypothyroidism, unspecified; Z90.49 Acquired absence of other specified parts of digestive tract; Z88.8 Allergy status to other drugs, medicaments and biological substances; Z88.0 Allergy status to penicillin; Z79.899 Other long term (current) drug therapy; Z98.890 Other specified postprocedural states
CPT/HCPCS: 96365; 96366; 96375; J1200; J1756; J2060; J2919; J7030

== ENCOUNTER 2024-05-12 11:39 | Emergency (ER) | payer BC ==
[~2024-05-12] VITALS: Ht 167.6 cm; Wt 59.1 kg
[2024-05-12 12:03] LABS: BASOPHILS % (AUTO) 0.4 % (0-1); EOSINOPHILS # (AUTO) 0.1 X10'3 (0-0.9); EOSINOPHILS % (AUTO) 1.2 % (0-6); HEMATOCRIT 42.1 % (35.0-45.0); HEMOGLOBIN 13.5 g/dl (12.0-16.0); LYMPHOCYTES # (AUTO) 3.1 X10'3 (1.1-4.8); MEAN CORPUSCULAR HEMOGLOBIN 26.6 PG (27.0-31.0); MEAN CORPUSCULAR HGB CONC 32.2 g/dL (33.0-36.5); MEAN CORPUSCULAR VOLUME 82.7 FL (78-98); MEAN PLATELET VOLUME 7.2 FL (7.4-10.4); MONOCYTES # (AUTO) 0.5 X10'3 (0-0.9); MONOCYTES % (AUTO) 6.5 % (2-12); NEUTROPHILS # (AUTO) 4.2 X10'3 (1.8-7.7); NEUTROPHILS % (AUTO) 52.9 % (42-75); PLATELET COUNT 477 X10'3 (140-440); RED BLOOD COUNT 5.09 X10'6 (4.20-5.60); RED CELL DISTRIBUTION WIDTH 16.4 % (11.5-14.5)
[2024-05-12] MEDS: normal saline 1000ML IV soln IVB ONE (12:13)
[2024-05-12] MEDS: LORazepam 2 mg/ml vial IV ONE (12:16)
[2024-05-12] MEDS: ondansetron/PF 4mg/2ml inj IV ONE (12:16)
[2024-05-12 12:21] LABS: ALANINE AMINOTRANSFERASE 34 U/L (12-78); ALBUMIN/GLOBULIN RATIO 1.1 (1.1-1.5); ALKALINE PHOSPHATASE 92 IU/L (46-116); ANION GAP 9 (8-16); ASPARTATE AMINO TRANSFERASE 18 U/L (10-37); BILIRUBIN,TOTAL 0.2 MG/DL (0.1-1.0); BLOOD UREA NITROGEN 13 MG/DL (7-18); BUN/CREATININE RATIO 19.1 (10.0-20.0); CALCIUM 9.1 MG/DL (8.5-10.1); CHLORIDE 103 MMOL/L (99-107); CREATININE 0.68 MG/DL (0.40-0.90); GLUCOSE 105 MG/DL (70-104); POTASSIUM 3.2 MMOL/L (3.5-5.1); SODIUM 139 MMOL/L (135-145); TOTAL PROTEIN 7.7 G/DL (6.4-8.2); eCRCL 87 ML/MIN; eGFR 90 ML/MIN
[2024-05-12 12:29] LABS: PRO BRAIN NATRIURETIC PEPTIDE < 30 PG/ML (0-125)
[2024-05-12] MEDS ORDERED: POTA-192 PO (13:00)
[2024-05-12 13:01] VITALS: BP 121/64; PULSE 95; TEMP 98.3; O2SAT 96
[2024-05-12] MEDS: potassium Cl 20 mEq SR tablet PO STA (13:03)
[2024-05-12 13:09] VITALS: RESP 16
== END 2024-05-12 13:26 | disposition home or self-care (01) ==
LOC: ER 11:39
DX: E87.6 Hypokalemia (principal); I78.0 Hereditary hemorrhagic telangiectasia; R11.0 Nausea; R42 Dizziness and giddiness; E03.9 Hypothyroidism, unspecified; Z90.49 Acquired absence of other specified parts of digestive tract; Z98.890 Other specified postprocedural states; Z79.899 Other long term (current) drug therapy; Z88.0 Allergy status to penicillin; Z88.8 Allergy status to other drugs, medicaments and biological substances
CPT/HCPCS: 36415; 80053; 83880; 84484; 85025; 93005; 96361; 96374; 96375; 99284; J2060; J2405; J7030

== ENCOUNTER 2024-05-13 08:53 | Outpatient (CLI) | payer BC ==
[~2024-05-13 08:53] MED LIST changes: +POTA-192 PO
[2024-05-13 09:30] LABS: BASOPHILS # (AUTO) 0.1 X10'3 (0-0.2); BASOPHILS % (AUTO) 1.1 % (0-1); EOSINOPHILS # (AUTO) 0.1 X10'3 (0-0.9); EOSINOPHILS % (AUTO) 1.9 % (0-6); HEMATOCRIT 41.7 % (35.0-45.0); HEMOGLOBIN 13.4 g/dl (12.0-16.0); LYMPHOCYTES # (AUTO) 1.6 X10'3 (1.1-4.8); LYMPHOCYTES % (AUTO) 32.3 % (21-51); MEAN CORPUSCULAR HEMOGLOBIN 27.1 PG (27.0-31.0); MEAN CORPUSCULAR HGB CONC 32.3 g/dL (33.0-36.5); MONOCYTES # (AUTO) 0.4 X10'3 (0-0.9); MONOCYTES % (AUTO) 7.8 % (2-12); NEUTROPHILS # (AUTO) 2.8 X10'3 (1.8-7.7); NEUTROPHILS % (AUTO) 56.9 % (42-75); PLATELET COUNT 443 X10'3 (140-440); RED BLOOD COUNT 4.96 X10'6 (4.20-5.60); RED CELL DISTRIBUTION WIDTH 16.1 % (11.5-14.5); WHITE BLOOD COUNT 4.9 X10'3 (4.5-11.0)
== END 2024-05-13 23:59 | disposition home or self-care (01) ==
LOC: LAB 08:53
PROVIDERS: ATTEND Family Medicine
DX: I78.0 Hereditary hemorrhagic telangiectasia (principal); R53.83 Other fatigue; D50.0 Iron deficiency anemia secondary to blood loss (chronic)
CPT/HCPCS: 36415; 82728; 85025

== ENCOUNTER 2024-05-18 07:48 | Outpatient (CLI) | payer BC ==
[2024-05-18 08:36] LABS: BASOPHILS % (AUTO) 1.2 % (0-1); EOSINOPHILS # (AUTO) 0.2 X10'3 (0-0.9); EOSINOPHILS % (AUTO) 3.8 % (0-6); HEMATOCRIT 42.4 % (35.0-45.0); HEMOGLOBIN 13.7 g/dl (12.0-16.0); LYMPHOCYTES # (AUTO) 1.5 X10'3 (1.1-4.8); LYMPHOCYTES % (AUTO) 36.1 % (21-51); MEAN CORPUSCULAR HGB CONC 32.3 g/dL (33.0-36.5); MEAN CORPUSCULAR VOLUME 83.8 FL (78-98); MEAN PLATELET VOLUME 7.4 FL (7.4-10.4); MONOCYTES # (AUTO) 0.3 X10'3 (0-0.9); MONOCYTES % (AUTO) 8.4 % (2-12); NEUTROPHILS % (AUTO) 50.5 % (42-75); PLATELET COUNT 387 X10'3 (140-440); RED BLOOD COUNT 5.06 X10'6 (4.20-5.60); RED CELL DISTRIBUTION WIDTH 16.6 % (11.5-14.5)
== END 2024-05-18 23:59 | disposition home or self-care (01) ==
LOC: LAB 07:48
PROVIDERS: ATTEND Family Medicine
DX: I78.0 Hereditary hemorrhagic telangiectasia (principal); D50.0 Iron deficiency anemia secondary to blood loss (chronic); R53.83 Other fatigue
CPT/HCPCS: 36415; 82728; 85025

== ENCOUNTER 2024-07-12 08:44 | Outpatient (CLI) | payer BC ==
[~2024-07-12 08:44] MED LIST changes: -POTA-192 PO
[2024-07-12 09:20] LABS: BASOPHILS # (AUTO) 0.1 X10'3 (0-0.2); BASOPHILS % (AUTO) 1.4 % (0-1); EOSINOPHILS # (AUTO) 0.1 X10'3 (0-0.9); EOSINOPHILS % (AUTO) 1.9 % (0-6); HEMATOCRIT 41.1 % (35.0-45.0); HEMOGLOBIN 13.3 g/dl (12.0-16.0); LYMPHOCYTES # (AUTO) 1.3 X10'3 (1.1-4.8); LYMPHOCYTES % (AUTO) 30.9 % (21-51); MEAN CORPUSCULAR HEMOGLOBIN 27.7 PG (27.0-31.0); MEAN CORPUSCULAR HGB CONC 32.4 g/dL (33.0-36.5); MEAN CORPUSCULAR VOLUME 85.4 FL (78-98); MEAN PLATELET VOLUME 7.5 FL (7.4-10.4); MONOCYTES # (AUTO) 0.3 X10'3 (0-0.9); MONOCYTES % (AUTO) 8.1 % (2-12); NEUTROPHILS # (AUTO) 2.4 X10'3 (1.8-7.7); NEUTROPHILS % (AUTO) 57.7 % (42-75); PLATELET COUNT 394 X10'3 (140-440); RED BLOOD COUNT 4.81 X10'6 (4.20-5.60); RED CELL DISTRIBUTION WIDTH 14.6 % (11.5-14.5); WHITE BLOOD COUNT 4.1 X10'3 (4.5-11.0)
== END 2024-07-12 23:59 | disposition home or self-care (01) ==
LOC: LAB 08:44
PROVIDERS: ATTEND Family Medicine
DX: I78.0 Hereditary hemorrhagic telangiectasia (principal); D50.0 Iron deficiency anemia secondary to blood loss (chronic); R53.83 Other fatigue
CPT/HCPCS: 36415; 82728; 85025

== ENCOUNTER 2024-07-16 11:10 | Day surgery (SDC) | payer BC ==
[~2024-07-16] VITALS: Ht 167.6 cm; Wt 60.1 kg
[2024-07-16 12:30] VITALS: BP 120/78; PULSE 88; RESP 14; O2SAT 99
[2024-07-16] MEDS: diphenhydrAMINE 50 mg/ml inj IV PRN (13:00)
[2024-07-16] MEDS: iron sucrose complex (VENOFER) 200 MG in NS 100ml IV IV ONE (13:00)
[2024-07-16] MEDS: LORazepam 2 mg/ml vial IV PRN (13:00)
[2024-07-16] MEDS: methylPREDNISolone sod succ 125mg/2ml vial IV ONE (13:00)
[2024-07-16 13:15] VITALS: BP 122/74; PULSE 96; RESP 16; O2SAT 96
[2024-07-16 13:30] VITALS: BP 109/72; PULSE 93; RESP 16; O2SAT 96
[2024-07-16 13:45] VITALS: BP 100/66; PULSE 92; RESP 16; O2SAT 96
[2024-07-16 14:00] VITALS: BP 110/75; PULSE 94; RESP 14; O2SAT 97
[2024-07-16 14:15] VITALS: BP 108/82; PULSE 98; RESP 14; O2SAT 100
== END 2024-07-16 14:35 | disposition home or self-care (01) ==
LOC: SSTAY O 11:10
PROVIDERS: ATTEND Family Medicine
DX: I78.0 Hereditary hemorrhagic telangiectasia (principal); D50.0 Iron deficiency anemia secondary to blood loss (chronic)
CPT/HCPCS: 96365; 96375; J1200; J1756; J2060; J2919; J7030

== ENCOUNTER 2024-08-17 06:59 | Outpatient (CLI) | payer BC ==
[2024-08-17 08:53] LABS: % IRON SATURATION 17 % (11-46); IRON 59 UG/DL (49-151); TOTAL IRON BINDING CAPACITY 357 UG/DL (259-388)
[2024-08-17 09:07] LABS: FERRITIN 21 NG/ML (8-252)
== END 2024-08-17 23:59 | disposition home or self-care (01) ==
LOC: LAB 06:59
PROVIDERS: ATTEND Physician Assistant
DX: D50.0 Iron deficiency anemia secondary to blood loss (chronic) (principal); R79.0 Abnormal level of blood mineral
CPT/HCPCS: 36415; 82728; 83540; 83550

== ENCOUNTER → 2024-09-10 | Day surgery (SDC) | payer BC ==
[2024-09-10] VITALS (9 sets, daily range): BP systolic 112–138; BP diastolic 68–79; PULSE 87–92; RESP 14–16; O2SAT 99–100
[2024-09-10 10:01] LABS: % IRON SATURATION 11 % (11-46); IRON 37 UG/DL (49-151); TOTAL IRON BINDING CAPACITY 342 UG/DL (259-388)
[2024-09-10] MEDS: LORazepam 2 mg/ml vial IV PRN (16:04)
[2024-09-10] MEDS: diphenhydrAMINE 50 mg/ml inj IV ONE (16:16)
[2024-09-10] MEDS: methylPREDNISolone sod succ 125mg/2ml vial IV ONE (16:29)
[2024-09-10] MEDS: iron sucrose complex (VENOFER) 200 MG in NS 100ml IV IV ONE (16:36)
== END | disposition home or self-care (01) ==
LOC: RAD 07:14 → EDSTATUS 14:13 → SSTAY O 14:48
PROVIDERS: ATTEND Physician Assistant
DX: R79.0 Abnormal level of blood mineral (principal); D50.0 Iron deficiency anemia secondary to blood loss (chronic); I78.0 Hereditary hemorrhagic telangiectasia
CPT/HCPCS: 36415; 83540; 83550; J1200; J1756; J2060; J2919; J7030

== ENCOUNTER 2024-09-15 09:32 | Outpatient (CLI) | payer BC ==
[2024-09-15 10:47] LABS: % IRON SATURATION 19 % (11-46); IRON 72 UG/DL (49-151); TOTAL IRON BINDING CAPACITY 381 UG/DL (259-388)
== END 2024-09-15 23:59 | disposition home or self-care (01) ==
LOC: LAB 09:32
PROVIDERS: ATTEND Student in an Organized Health Care Education/Training Program
DX: E61.1 Iron deficiency (principal); I78.0 Hereditary hemorrhagic telangiectasia
CPT/HCPCS: 36415; 83540; 83550

== ENCOUNTER 2024-10-19 08:22 | Outpatient (CLI) | payer BC ==
[2024-10-19 10:11] LABS: % IRON SATURATION 11 % (11-46); IRON 39 UG/DL (49-151); TOTAL IRON BINDING CAPACITY 352 UG/DL (259-388)
== END 2024-10-19 23:59 | disposition home or self-care (01) ==
LOC: LAB 08:22
PROVIDERS: ATTEND Family Medicine
DX: D50.0 Iron deficiency anemia secondary to blood loss (chronic) (principal)
CPT/HCPCS: 36415; 83540; 83550

== ENCOUNTER 2024-10-22 06:03 | Day surgery (SDC) | payer BC ==
[~2024-10-22] VITALS: Ht 167.6 cm; Wt 60.4 kg
[2024-10-22] VITALS (11 sets, daily range): BP systolic 104–132; BP diastolic 60–90; PULSE 74–81; RESP 16; TEMP 98.3; O2SAT 96–100
[2024-10-22] MEDS: diphenhydrAMINE 25mg capsule PO ONE (09:02)
[2024-10-22] MEDS: LORazepam 2 mg/ml vial IV ONE (09:03)
[2024-10-22] MEDS: methylPREDNISolone sod succ 125mg/2ml vial IV ONE (09:03)
[2024-10-22] MEDS: iron sucrose complex (VENOFER) 200 MG in NS 100ml IV IV ONE (09:57)
== END 2024-10-22 11:53 | disposition home or self-care (01) ==
LOC: SSTAY O 06:03
PROVIDERS: ATTEND Family Medicine
DX: D50.0 Iron deficiency anemia secondary to blood loss (chronic) (principal); I78.0 Hereditary hemorrhagic telangiectasia
CPT/HCPCS: 96365; 96375; J1756; J2060; J2919; J7030; Q0163

== ENCOUNTER → 2024-11-16 | Outpatient (CLI) | payer BC ==
[2024-11-18 07:15] LABS: BASOPHILS % (AUTO) 1.2 % (0-1); EOSINOPHILS # (AUTO) 0.2 X10'3 (0-0.9); EOSINOPHILS % (AUTO) 6.8 % (0-6); HEMATOCRIT 38.5 % (35.0-45.0); HEMOGLOBIN 12.7 g/dl (12.0-16.0); LYMPHOCYTES # (AUTO) 1.3 X10'3 (1.1-4.8); LYMPHOCYTES % (AUTO) 41.4 % (21-51); MEAN CORPUSCULAR HEMOGLOBIN 27.8 PG (27.0-31.0); MEAN CORPUSCULAR VOLUME 84.2 FL (78-98); MEAN PLATELET VOLUME 6.9 FL (7.4-10.4); MONOCYTES # (AUTO) 0.4 X10'3 (0-0.9); MONOCYTES % (AUTO) 11.1 % (2-12); NEUTROPHILS # (AUTO) 1.3 X10'3 (1.8-7.7); NEUTROPHILS % (AUTO) 39.5 % (42-75); PLATELET COUNT 336 X10'3 (140-440); RED BLOOD COUNT 4.57 X10'6 (4.20-5.60); RED CELL DISTRIBUTION WIDTH 14.5 % (11.5-14.5); WHITE BLOOD COUNT 3.2 X10'3 (4.5-11.0)
[2024-11-18 09:26] LABS: % IRON SATURATION 10 % (11-46); IRON 31 UG/DL (49-151); TOTAL IRON BINDING CAPACITY 316 UG/DL (259-388)
== END | disposition home or self-care (01) ==
LOC: LAB 07:09
PROVIDERS: ATTEND Family Medicine
DX: D50.0 Iron deficiency anemia secondary to blood loss (chronic) (principal)
CPT/HCPCS: 36415; 83540; 83550; 85025

== ENCOUNTER 2024-12-03 07:23 | Day surgery (SDC) | payer BC ==
[2024-12-03] VITALS (11 sets, daily range): BP systolic 103–119; BP diastolic 55–75; PULSE 70–90; RESP 16; TEMP 98.8; O2SAT 92–97
[~2024-12-03] VITALS: Ht 167.6 cm; Wt 60.2 kg
[2024-12-03] MEDS: LORazepam 2 mg/ml vial IV ONE (07:58)
[2024-12-03] MEDS: diphenhydrAMINE 25mg capsule PO ONE (08:07)
[2024-12-03] MEDS: normal saline 1000ml 1,000 ML IV SCH (08:48)
[2024-12-03] MEDS: dexamethasone sod phosphate 10mg/ml inj IV STA (08:48)
[2024-12-03] MEDS: iron sucrose complex injection 200 MG in normal saline 100ml IV soln 100 ML IV SCH (08:49)
[2024-12-15 08:45] VITALS: BP 118/74; PULSE 83; RESP 16; TEMP 98.3; O2SAT 100
[2024-12-15] MEDS: LORazepam 1 MG tablet PO ONE (09:34)
[2024-12-15] MEDS: diphenhydrAMINE 50 mg/ml inj IV ONE (09:35)
[2024-12-15] MEDS: dexamethasone sod phosphate 10mg/ml inj IV ONE (10:05)
[2024-12-15 10:14] VITALS: BP 118/74; PULSE 83; RESP 16; O2SAT 100
[2024-12-15] MEDS: iron sucrose complex injection 200 MG in normal saline 100ml IV soln 100 ML IV SCH (10:14)
[2024-12-15] MEDS: normal saline 1000ml 1,000 ML IV ONE (10:16)
[2024-12-15 10:53] VITALS: BP 118/74; PULSE 83; RESP 16; O2SAT 100
[2024-12-15 11:00] VITALS: BP 105/69; PULSE 89; RESP 16; O2SAT 97
[2024-12-15] MEDS ORDERED: LEVO25TA7 PO (14:27)
[2024-12-15] MEDS ORDERED: ALPR1TAB7 PO (14:27)
[2024-12-15] MEDS ORDERED: ZOLP10TA PO (14:27)
== END 2024-12-15 11:10 | disposition home or self-care (01) ==
LOC: SSTAY O 07:23
PROVIDERS: ATTEND Internal Medicine Hematology & Oncology
DX: D50.0 Iron deficiency anemia secondary to blood loss (chronic) (principal); I78.0 Hereditary hemorrhagic telangiectasia; R79.0 Abnormal level of blood mineral; K92.2 Gastrointestinal hemorrhage, unspecified; E03.9 Hypothyroidism, unspecified; Z90.49 Acquired absence of other specified parts of digestive tract; Z88.0 Allergy status to penicillin; Z88.8 Allergy status to other drugs, medicaments and biological substances; Z79.899 Other long term (current) drug therapy; Z98.890 Other specified postprocedural states
CPT/HCPCS: 96365; 96366; 96375; J1100; J1200; J1756; J2060; J7030; Q0163; 43264

== ENCOUNTER 2024-12-17 06:29 | Day surgery (SDC) | payer BC ==
[~2024-12-17] VITALS: Ht 167.6 cm; Wt 59.9 kg
[~2024-12-17 06:29] MED LIST changes: +ALPR1TAB7 PO; +LEVO25TA7 PO; +ZOLP10TA PO
[2024-12-17 06:35] VITALS: BP 112/73; PULSE 84; RESP 13; TEMP 98.4
[2024-12-17] MEDS ORDERED: fentaNYL/PF 50MCG/1 ML 2ML syringe ONE (07:10)
[2024-12-17] MEDS ORDERED: MIDAZolam 1 MG/ML 5ML VIAL ONE (07:10)
[2024-12-17] MEDS ORDERED: propofol inj 20 ML IV ONE ×2 (07:11)
[2024-12-17] MEDS ORDERED: glucagon, human recombinant 1mg kit ONE (07:55)
[2024-12-17 08:25] VITALS: BP 79/54; PULSE 69; RESP 9; O2SAT 99
[2024-12-17 08:35] VITALS: BP 91/56; PULSE 75; RESP 13; O2SAT 100
[2024-12-17 08:45] VITALS: BP 98/68; PULSE 77; RESP 10; O2SAT 100
[2024-12-17 08:55] VITALS: BP 94/65; PULSE 71; RESP 10; O2SAT 99
[2024-12-17 09:12] VITALS: BP 103/64; PULSE 71; RESP 11; O2SAT 100
== END 2024-12-17 09:12 | disposition home or self-care (01) ==
LOC: GI LAB 06:29
PROVIDERS: ATTEND Internal Medicine Gastroenterology
DX: K92.2 Gastrointestinal hemorrhage, unspecified (principal); D12.0 Benign neoplasm of cecum; D50.9 Iron deficiency anemia, unspecified; K31.819 Angiodysplasia of stomach and duodenum without bleeding; D64.9 Anemia, unspecified; E03.9 Hypothyroidism, unspecified; Z98.890 Other specified postprocedural states; Z88.0 Allergy status to penicillin; Z88.8 Allergy status to other drugs, medicaments and biological substances
CPT/HCPCS: 43255; 45385; J2250; J2704; J3010; J7030; Z7512; A4620; C1889; J1610

== ENCOUNTER 2024-12-20 08:16 | Outpatient (CLI) | payer BC ==
[2024-12-20 09:19] LABS: BASOPHILS # (AUTO) 0.1 X10'3 (0-0.2); BASOPHILS % (AUTO) 1.4 % (0-1); EOSINOPHILS # (AUTO) 0.3 X10'3 (0-0.9); HEMATOCRIT 40.7 % (35.0-45.0); HEMOGLOBIN 13.2 g/dl (12.0-16.0); LYMPHOCYTES # (AUTO) 1.2 X10'3 (1.1-4.8); LYMPHOCYTES % (AUTO) 24.5 % (21-51); MEAN CORPUSCULAR HEMOGLOBIN 27.2 PG (27.0-31.0); MEAN CORPUSCULAR HGB CONC 32.4 g/dL (33.0-36.5); MEAN CORPUSCULAR VOLUME 83.8 FL (78-98); MEAN PLATELET VOLUME 7.3 FL (7.4-10.4); MONOCYTES # (AUTO) 0.3 X10'3 (0-0.9); NEUTROPHILS # (AUTO) 3.2 X10'3 (1.8-7.7); NEUTROPHILS % (AUTO) 63.1 % (42-75); PLATELET COUNT 449 X10'3 (140-440); RED BLOOD COUNT 4.86 X10'6 (4.20-5.60); RED CELL DISTRIBUTION WIDTH 14.5 % (11.5-14.5)
[2024-12-20 09:45] LABS: ALANINE AMINOTRANSFERASE 48 U/L (12-78); ALBUMIN 3.8 G/DL (3.4-5.0); ALBUMIN/GLOBULIN RATIO 0.9 (1.1-1.5); ALKALINE PHOSPHATASE 107 IU/L (46-116); ANION GAP 6 (8-16); ASPARTATE AMINO TRANSFERASE 22 U/L (10-37); BILIRUBIN,TOTAL 0.3 MG/DL (0.1-1.0); BLOOD UREA NITROGEN 15 MG/DL (7-18); BUN/CREATININE RATIO 26.8 (10.0-20.0); CALCIUM 8.8 MG/DL (8.5-10.1); CHLORIDE 101 MMOL/L (99-107); CREATININE 0.56 MG/DL (0.40-0.90); GLUCOSE 105 MG/DL (70-104); POTASSIUM 4.1 MMOL/L (3.5-5.1); SODIUM 137 MMOL/L (135-145); TOTAL CARBON DIOXIDE 29.7 MMOL/L (24-32); TOTAL PROTEIN 7.9 G/DL (6.4-8.2); eGFR > 90 ML/MIN
[2024-12-20 09:56] LABS: FERRITIN 161 NG/ML (8-252)
[2024-12-20 10:12] LABS: % IRON SATURATION 17 % (11-46); IRON 57 UG/DL (49-151); TOTAL IRON BINDING CAPACITY 343 UG/DL (259-388)
[2024-12-21 08:15] LABS: VITAMIN D, 25-HYDROXY 31.8 ng/mL (30.0-100.0)
== END 2024-12-20 23:59 | disposition home or self-care (01) ==
LOC: LAB 08:16
PROVIDERS: ATTEND Internal Medicine Hematology & Oncology
DX: I78.0 Hereditary hemorrhagic telangiectasia (principal); D50.9 Iron deficiency anemia, unspecified; R79.89 Other specified abnormal findings of blood chemistry
CPT/HCPCS: 36415; 80053; 82306; 82607; 82728; 83540; 83550; 85025; 85651

== ENCOUNTER 2024-12-23 09:34 | Emergency (ER) | payer BC ==
[~2024-12-23] VITALS: Ht 167.6 cm; Wt 45.9 kg
[2024-12-23 09:38] VITALS: BP 126/79; PULSE 77; RESP 17; O2SAT 97
[2024-12-23] MEDS: tranexamic acid 100mg/ml inj. TP ONE (09:51)
[2024-12-23] MEDS: LIDOcaine 1% W/epiNEPHrine 1:100,000 20ml vial IJ ONE (09:51)
== END 2024-12-23 10:37 | disposition home or self-care (01) ==
LOC: ER 09:34
DX: R58 Hemorrhage, not elsewhere classified (principal); E03.9 Hypothyroidism, unspecified; Z88.0 Allergy status to penicillin; Z88.8 Allergy status to other drugs, medicaments and biological substances; Z90.49 Acquired absence of other specified parts of digestive tract; Z79.899 Other long term (current) drug therapy; Z98.890 Other specified postprocedural states
CPT/HCPCS: 96372; 99283

== ENCOUNTER 2025-01-21 09:50 | Outpatient (CLI) | payer BC ==
[~2025-01-21 09:50] MED LIST changes: +ZOLP-679 PO; -ZOLP10TA PO
[2025-01-21 10:42] LABS: BASOPHILS % (AUTO) 0.8 % (0-1); EOSINOPHILS # (AUTO) 0.2 X10'3 (0-0.9); HEMATOCRIT 37.2 % (35.0-45.0); HEMOGLOBIN 12.5 g/dl (12.0-16.0); LYMPHOCYTES # (AUTO) 1.3 X10'3 (1.1-4.8); LYMPHOCYTES % (AUTO) 21.8 % (21-51); MEAN CORPUSCULAR HEMOGLOBIN 27.6 PG (27.0-31.0); MEAN CORPUSCULAR HGB CONC 33.6 g/dL (33.0-36.5); MEAN CORPUSCULAR VOLUME 82.1 FL (78-98); MEAN PLATELET VOLUME 7.2 FL (7.4-10.4); MONOCYTES # (AUTO) 0.4 X10'3 (0-0.9); MONOCYTES % (AUTO) 6.5 % (2-12); NEUTROPHILS # (AUTO) 4.1 X10'3 (1.8-7.7); NEUTROPHILS % (AUTO) 67.9 % (42-75); PLATELET COUNT 482 X10'3 (140-440); RED BLOOD COUNT 4.53 X10'6 (4.20-5.60); RED CELL DISTRIBUTION WIDTH 14.2 % (11.5-14.5)
[2025-01-21 10:50] LABS: % IRON SATURATION 10 % (11-46); IRON 32 UG/DL (49-151); TOTAL IRON BINDING CAPACITY 336 UG/DL (259-388)
[2025-01-21 11:15] LABS: ALANINE AMINOTRANSFERASE 27 U/L (12-78); ALBUMIN 3.8 G/DL (3.4-5.0); ALBUMIN/GLOBULIN RATIO 1.2 (1.1-1.5); ALKALINE PHOSPHATASE 103 IU/L (46-116); ANION GAP 5 (8-16); ASPARTATE AMINO TRANSFERASE 16 U/L (10-37); BILIRUBIN,TOTAL 0.2 MG/DL (0.1-1.0); BLOOD UREA NITROGEN 13 MG/DL (7-18); CALCIUM 8.6 MG/DL (8.5-10.1); CHLORIDE 103 MMOL/L (99-107); CREATININE 0.59 MG/DL (0.40-0.90); FERRITIN 19 NG/ML (8-252); GLUCOSE 103 MG/DL (70-104); POTASSIUM 4.3 MMOL/L (3.5-5.1); SODIUM 138 MMOL/L (135-145); TOTAL CARBON DIOXIDE 29.8 MMOL/L (24-32); eGFR > 90 ML/MIN
[2025-01-22 11:11] LABS: VITAMIN D, 25-HYDROXY 35.6 ng/mL (30.0-100.0)
== END 2025-01-21 23:59 | disposition home or self-care (01) ==
LOC: LAB 09:50
PROVIDERS: ATTEND Internal Medicine Hematology & Oncology
DX: D50.9 Iron deficiency anemia, unspecified (principal); R79.89 Other specified abnormal findings of blood chemistry; I78.0 Hereditary hemorrhagic telangiectasia
CPT/HCPCS: 36415; 80053; 82306; 82607; 82728; 83540; 83550; 84466; 85025; 85651

== ENCOUNTER 2025-02-02 09:13 | Outpatient (CLI) | payer BC ==
[2025-02-03 07:51] LABS: BASOPHILS # (AUTO) 0.1 X10'3 (0-0.2); BASOPHILS % (AUTO) 1.5 % (0-1); EOSINOPHILS # (AUTO) 0.2 X10'3 (0-0.9); EOSINOPHILS % (AUTO) 5.5 % (0-6); HEMATOCRIT 38.8 % (35.0-45.0); HEMOGLOBIN 12.6 g/dl (12.0-16.0); LYMPHOCYTES # (AUTO) 1.4 X10'3 (1.1-4.8); LYMPHOCYTES % (AUTO) 33.2 % (21-51); MEAN CORPUSCULAR HEMOGLOBIN 26.7 PG (27.0-31.0); MEAN CORPUSCULAR HGB CONC 32.5 g/dL (33.0-36.5); MEAN CORPUSCULAR VOLUME 82.1 FL (78-98); MEAN PLATELET VOLUME 7.2 FL (7.4-10.4); MONOCYTES # (AUTO) 0.3 X10'3 (0-0.9); MONOCYTES % (AUTO) 8.4 % (2-12); NEUTROPHILS # (AUTO) 2.1 X10'3 (1.8-7.7); NEUTROPHILS % (AUTO) 51.4 % (42-75); PLATELET COUNT 435 X10'3 (140-440); RED BLOOD COUNT 4.72 X10'6 (4.20-5.60); WHITE BLOOD COUNT 4.2 X10'3 (4.5-11.0)
[2025-02-03 08:17] LABS: ALANINE AMINOTRANSFERASE 27 U/L (12-78); ALBUMIN 3.9 G/DL (3.4-5.0); ALBUMIN/GLOBULIN RATIO 1.2 (1.1-1.5); ALKALINE PHOSPHATASE 110 IU/L (46-116); ANION GAP 6 (8-16); ASPARTATE AMINO TRANSFERASE 18 U/L (10-37); BILIRUBIN,TOTAL 0.3 MG/DL (0.1-1.0); BLOOD UREA NITROGEN 15 MG/DL (7-18); BUN/CREATININE RATIO 22.7 (10.0-20.0); CALCIUM 8.8 MG/DL (8.5-10.1); CHLORIDE 106 MMOL/L (99-107); CREATININE 0.66 MG/DL (0.40-0.90); FERRITIN 12 NG/ML (8-252); GLUCOSE 74 MG/DL (70-104); POTASSIUM 4.2 MMOL/L (3.5-5.1); SODIUM 142 MMOL/L (135-145); TOTAL CARBON DIOXIDE 30.5 MMOL/L (24-32); TOTAL PROTEIN 7.2 G/DL (6.4-8.2); eGFR > 90 ML/MIN
[2025-02-03 08:43] LABS: % IRON SATURATION 13 % (11-46); IRON 46 UG/DL (49-151); TOTAL IRON BINDING CAPACITY 364 UG/DL (259-388)
[2025-02-05 05:34] LABS: VITAMIN D, 25-HYDROXY 35.9 ng/mL (30.0-100.0)
== END 2025-02-02 23:59 | disposition home or self-care (01) ==
LOC: LAB 09:13
PROVIDERS: ATTEND Internal Medicine Hematology & Oncology
DX: I70.8 Atherosclerosis of other arteries (principal); D50.9 Iron deficiency anemia, unspecified; R79.89 Other specified abnormal findings of blood chemistry
CPT/HCPCS: 36415; 80053; 82306; 82607; 82728; 83540; 83550; 84466; 85025; 85651

== ENCOUNTER 2025-02-07 07:16 | Emergency (ER) | payer BC ==
[~2025-02-07] VITALS: Ht 167.6 cm; Wt 61.3 kg
--- NOTE | 2025-02-07 07:27 | Physician Documentation ---
History of Present Illness ~ Chief Complaint: Blood in Urine Stated Complaint: FLANK PAIN Time Seen by MD: 07:21 OK to notify your PCP?: Yes Primary Medical Doctor: Adolfo PARK 54-year-old female who presents to the emergency department complaining of blood in the urine, she states she passed multiple clots, started yesterday with some dysuria, denies fevers chills or sweats has a history of a bleeding condition as well. She denies any suprapubic pain but does have a little tenderness in the right flank. Timing/Duration: hours Quality/Severity: mild Pain Location: right flank Radiation: none Activities at Onset: spontaneous Prior Genitourinary Problem: none Associated Symptoms: dysuria, frequency, hematuria Medication Reconciliation Allergies: Coded Allergies: Penicillins (Verified Allergy, Unknown, RASH, JOINT PAIN/SWELLING, 02/07/25) iron (Verified Adverse Reaction, Intermediate, hypertension, shaking uncon trollably, felt like passing out, 02/07/25) pre-medicate with steroid and benadryl prior to any dosing. sodium ferric gluconate complex (Unverified Adverse Reaction, Intermediate, ADR, 02/07/25) ADR TO HIGH DOSE:HYPOTENSION,AB PAIN,SWELLING IN HANDS,NAUSEA Scheduled Levothyroxine Sodium (Levothyroxine Sodium), 1 TAB PO DAILY, (Reported) Tranexamic Acid (Lysteda), 1 TAB PO TID, (Reported) Scheduled PRN Alprazolam (Alprazolam), 1 TAB PO DAILY PRN for anxiety, (Reported) Zolpidem Tartrate (Ambien), 1 PO PRN PRN for sleep, (Reported) Past Medical History Past Medical History: *HEMATOLOGY*, Hypothyroidism Past Surgical History: appendectomy, orthopedic surgeries Patient History: FH: heart disease FATHER, Age: 73 Hereditary hemorrhagic telangiectasia (HHT) FATHER, Age: 73 Drug Use: none Lives In: Home Occupation: employed Review of Systems All Other Systems at this time: Reviewed and Negative Constitutional: Reports: see HPI Genitourinary: Reports: burning, dysuria, flank pain, hematuria Female Genitalia: Reports: see HPI Physical Exam Vital Signs: RN Vital Signs have been reviewed: Yes, Temperature: 97.0, Source: Temporal, Heart Rate: 93, Respiratory Rate: 18, BP: 125/86, Pulse Oximetry: 100, Weight: 61.280 Pulse Oximetry Reflects: adequate oxygenation General Appearance: alert, no apparent distress EENT: PERRL/EOMI, normal ENT inspection Respiratory: lungs clear, normal breath sounds, no respiratory distress Chest: no accessory muscle use, chest non-tender Cardiovascular: normal peripheral pulses, regular rate, rhythm, no edema Gastrointestinal: normal palpation, non-tender, bowels sounds present Back: CVA tenderness (R) Extremities: normal range of motion Psychiatric: normal mood/affect Progress Results/Orders Results/Orders Orders - SIDNEY VEGA DO Cult Urine + [address] (02/07/25 08:28) Cephalexin Capsule (Keflex Capsule) (02/07/25 08:35) Phenazopyridine Tablet (Pyridium Tablet) (02/07/25 08:35) Completed Orders - SIDNEY VEGA DO Ua W/Microscopic, Cult If Ind (02/07/25 07:36) Vital Signs 02/07/25 02/07/25 07:20 07:29 Temp 97.0 Pulse 93 Resp 18 16 B/P (MAP) 125/86 Pulse Ox 100 Laboratory Tests Test 02/07/25 07:36 Urine Specimen Description Cln catch midstream Urine Color Yellow Urine Clarity Slightly cloudy Urine pH 6.0 Urine Specific [place] 1.010 Urine Protein 30 H Urine Glucose (UA) Negative Urine Ketones Negative Urine Occult Blood Large H Urine Nitrite Negative Urine Bilirubin Negative Urine Urobilinogen 0.2 Urine Leukocyte Esterase Small H Urine RBC 50-100 Urine WBC 50-100 H Urine Squamous Epithelial Cells Few Urine Bacteria Few Urine Mucus None seen Urine Culture Indicated Indicated Volume Urine Centrifuged 10 ml Urine Comment Re-Evaluation Re-Evaluation : Progress 8:30 a.m. review of urine shows leukocyte esterase with elevated white cells and some red cells consistent with acute cystitis, patient will be treated with Keflex and Pyridium, prescription for the same sent to the pharmacy, strict return precautions were discussed. Medical Decision Making Findings Review of urine shows elevated leuks esterase in the setting of white blood cells in the urine and red blood cells consistent with acute cystitis, differential diagnosis and acute infected kidney stone, pyelonephritis, sepsis secondary to urinary tract infection, cancer bladder mass among others, no imaging was indicated at this time as patient does not have severe flank pain, we will be treated with Keflex even though there is an allergy to penicillin listed in the chart 1st dose was given in the emergency department, strict return precautions were discussed, patient is agreeable and discharged after medication. Genital Diff Dx:Considerations: Include: Menorrhagia, Menometrorrhagia, Menstrual bleeding, , UTI, Vaginitis Departure Disposition: 01 HOME / SELF CARE / HOMELESS Impression: Primary Impression: UTI (urinary tract infection) Additional Impression: Hematuria Condition: Improved Discharge Instructions: Urinary Tract Infection, Adult, Hematuria, Adult Additional Instructions: Please drink plenty of foods today, if you have worsening symptoms, nausea vomiting or fevers return to the ER for evaluation Referrals: NO PRIMARY CARE PROVIDER (PCP) Prescriptions Phenazopyridine Hcl (Pyridium tablet) 100 Mg Tablet 1 TAB PO Q8H PRN for pain, #12 TAB Prov: SIDNEY VEGA DO 02/07/25 Cephalexin*Monohydrate* (Keflex*) 500 Mg Capsule 1 CAP PO TID for 5 Days, #15 CAP Prov: SIDNEY VEGA DO 02/07/25 Education Educated: Patient Educated regarding: diagnosis, treatment, prognosis Signature Scribe Signature: None Attestation: Dictated by myself SIDNEY VEGA DO February 07, 2025 07:27
[2025-02-07 08:03] LABS: BILIRUBIN,URINE NEGATIVE (Neg); CLARITY,URINE SLIGHTLY CLOUDY (Clear); COLOR,URINE YELLOW (Yellow); GLUCOSE, URINE NEGATIVE (Neg); KETONES,URINE NEGATIVE (Neg); LEUKOCYTE ESTERASE ,URINE SMALL (Neg); NITRITES, URINE NEGATIVE (Neg); OCCULT BLOOD,URINE LARGE (Neg); PROTEIN,URINE 30 mg/dl (Neg); UROBILINOGEN,URINE 0.2 E.U/dL (0.2-1.0)
[2025-02-07 08:26] LABS: UA COLLECTION TYPE CLN CATCH MIDSTREAM
[2025-02-07 08:27] LABS: WBC,URINE 50-100 /HPF (0-4)
[2025-02-07 08:28] LABS: BACTERIA,URINE FEW /HPF (Neg); MUCUS STRANDS NONE SEEN /LPF (Neg); RBC,URINE 50-100 /HPF (0-2); SQUAMOUS EPITHELIAL CELL,UR FEW /LPF (FEW)
[2025-02-07] MEDS ORDERED: CEPH-585 PO (08:38)
[2025-02-07] MEDS ORDERED: PHEN-786 PO (08:38)
[2025-02-07] MEDS: cephalexin 250mg capsule PO ONE (08:50)
[2025-02-07] MEDS: phenazopyridine 100mg tablet PO ONE (08:50)
[2025-02-07 08:52] VITALS: BP 135/79; PULSE 88; RESP 18; TEMP 98.7; O2SAT 99
== END 2025-02-07 08:55 | disposition home or self-care (01) ==
LOC: ER 07:17
DX: N39.0 Urinary tract infection, site not specified (principal); R31.9 Hematuria, unspecified; E03.9 Hypothyroidism, unspecified; Z88.0 Allergy status to penicillin; Z90.49 Acquired absence of other specified parts of digestive tract; Z88.8 Allergy status to other drugs, medicaments and biological substances; Z79.899 Other long term (current) drug therapy
CPT/HCPCS: 81001; 87088; 99283

== ENCOUNTER 2025-02-17 07:33 | Day surgery (SDC) | payer BC ==
[2025-02-17] VITALS (9 sets, daily range): BP systolic 102–140; BP diastolic 60–86; PULSE 71–98; RESP 16; TEMP 99.5; O2SAT 98–100
[~2025-02-17] VITALS: Ht 167.6 cm; Wt 59.2 kg
[~2025-02-17 07:33] MED LIST changes: +PHEN-786 PO
[2025-02-17] MEDS ORDERED: dexamethasone sod phosphate 10mg/ml inj IV SCH (08:15)
[2025-02-17] MEDS: dexamethasone sod phosphate 10mg/ml inj IV ONE (08:44)
[2025-02-17] MEDS: LORazepam 1 MG tablet PO ONE (08:45)
[2025-02-17] MEDS: diphenhydrAMINE 25mg capsule PO ONE (08:45)
[2025-02-17] MEDS: NORMAL SALINE IV ONE (08:45)
[2025-02-17] MEDS: FERUMOXYTOL IV ONE (08:45)
[2025-03-23] MEDS ORDERED: ALPR1TAB7 (11:59)
== END 2025-02-17 11:00 | disposition home or self-care (01) ==
LOC: SSTAY O 07:33
PROVIDERS: ATTEND Internal Medicine Hematology & Oncology
DX: D50.0 Iron deficiency anemia secondary to blood loss (chronic) (principal); K92.2 Gastrointestinal hemorrhage, unspecified; E03.9 Hypothyroidism, unspecified; Z90.49 Acquired absence of other specified parts of digestive tract; Z88.0 Allergy status to penicillin; Z88.8 Allergy status to other drugs, medicaments and biological substances; Z79.899 Other long term (current) drug therapy
CPT/HCPCS: 96365; 96366; 96375; J1100; J7050; Q0163; J7030

== ENCOUNTER 2025-03-07 09:55 | Outpatient (CLI) | payer BC ==
[2025-03-07 11:17] LABS: BASOPHILS # (AUTO) 0.1 X10'3 (0-0.2); BASOPHILS % (AUTO) 1.1 % (0-1); EOSINOPHILS # (AUTO) 0.1 X10'3 (0-0.9); EOSINOPHILS % (AUTO) 2.2 % (0-6); HEMATOCRIT 38.2 % (35.0-45.0); HEMOGLOBIN 12.5 g/dl (12.0-16.0); LYMPHOCYTES # (AUTO) 1.3 X10'3 (1.1-4.8); LYMPHOCYTES % (AUTO) 26.5 % (21-51); MEAN CORPUSCULAR HGB CONC 32.6 g/dL (33.0-36.5); MEAN CORPUSCULAR VOLUME 82.7 FL (78-98); MEAN PLATELET VOLUME 7.2 FL (7.4-10.4); MONOCYTES # (AUTO) 0.3 X10'3 (0-0.9); MONOCYTES % (AUTO) 7.1 % (2-12); NEUTROPHILS % (AUTO) 63.1 % (42-75); PLATELET COUNT 341 X10'3 (140-440); RED BLOOD COUNT 4.62 X10'6 (4.20-5.60); RED CELL DISTRIBUTION WIDTH 16.2 % (11.5-14.5); WHITE BLOOD COUNT 4.8 X10'3 (4.5-11.0)
[2025-03-07 11:56] LABS: % IRON SATURATION 21 % (11-46); IRON 68 UG/DL (49-151); TOTAL IRON BINDING CAPACITY 321 UG/DL (259-388)
[2025-03-07 12:07] LABS: ALANINE AMINOTRANSFERASE 34 U/L (12-78); ALBUMIN 3.9 G/DL (3.4-5.0); ALBUMIN/GLOBULIN RATIO 1.1 (1.1-1.5); ALKALINE PHOSPHATASE 96 IU/L (46-116); ANION GAP 9 (8-16); ASPARTATE AMINO TRANSFERASE 20 U/L (10-37); BILIRUBIN,TOTAL 0.3 MG/DL (0.1-1.0); BLOOD UREA NITROGEN 13 MG/DL (7-18); BUN/CREATININE RATIO 18.8 (10.0-20.0); CALCIUM 9.1 MG/DL (8.5-10.1); CHLORIDE 103 MMOL/L (99-107); CREATININE 0.69 MG/DL (0.40-0.90); FERRITIN 180 NG/ML (8-252); GLUCOSE 66 MG/DL (70-104); POTASSIUM 4.1 MMOL/L (3.5-5.1); SODIUM 140 MMOL/L (135-145); TOTAL CARBON DIOXIDE 27.9 MMOL/L (24-32); TOTAL PROTEIN 7.4 G/DL (6.4-8.2); eGFR 88 ML/MIN
[2025-03-08 08:12] LABS: VITAMIN D, 25-HYDROXY 38.6 ng/mL (30.0-100.0)
== END 2025-03-07 23:59 | disposition home or self-care (01) ==
LOC: LAB 09:55
PROVIDERS: ATTEND Internal Medicine Hematology & Oncology
DX: I78.0 Hereditary hemorrhagic telangiectasia (principal); D50.9 Iron deficiency anemia, unspecified; R79.89 Other specified abnormal findings of blood chemistry
CPT/HCPCS: 36415; 80053; 82306; 82607; 82728; 83540; 83550; 84466; 85025; 85651

== ENCOUNTER 2025-03-08 06:46 | Outpatient (CLI) | payer BC ==
[2025-03-08] MEDS ORDERED: iohexol 300mg/ml 100ml inj. ONE (07:13)
--- NOTE | 2025-03-08 19:15 | RADIOLOGY REPORT ---
Exam: CT CT ABDOMEN PELVIS W/ IV CONTRAST History: GROSS HEMATURIA;IRON DEFICIENCY ANEMIA Comparison Study: None Technique: Multidetector spiral CT of the abdomen and pelvis was performed from lung bases to pubic s ymphysis. Initial imaging was done without IV contrast, followed by post contrast images of the abdo men and pelvis. Intravenous contrast was administered during this examination. Multi phase imaging w as obtained. Axial, coronal and sagittal multiplanar reformats were performed by the technologist on a separate workstation. CONTRAST: Type of contrast: Omni 300 Contrast injected: 100 ml Radiation Dose : CT Dose: CTDI volume is 9 mGy. Dose-length product is 1058 mGy*cm Findings: Lung Bases: No acute or significant lung base finding. Normal heart size. No pleural or pericardial effusion. Liver: Diffuse heterogeneous enhancement of the liver. Fatty lesion in the right lobe of the liver me asuring up to 14 mm. Gallbladder and biliary Tree: Unremarkable Spleen: Unremarkable Pancreas: The pancreas is normal in appearance without focal lesions or abnormal enhancement. Adrenal Glands: Unremarkable Kidneys: Right renal cysts. No hydronephrosis or nephrolithiasis. Bladder: Unremarkable Bowel: The stomach is grossly normal in appearance. Small bowel and colon are normal in caliber and d istribution. The appendix is not visualized; however, no secondary findings of acute appendicitis id entified. Ascites: Absent Lymphadenopathy: No mesenteric, retroperitoneal or periportal lymphadenopathy. Abdominal wall and Mesentery: Unremarkable. Vasculature: The visualized abdominal aorta is normal in size and caliber. Abdominal and pelvic vess els demonstrate normal enhancement. Pelvic Organs: Unremarkable Musculoskeletal: No aggressive focal bony lesions, acute fractures or dislocation. IMPRESSION: 1. No acute abdominal or pelvic finding. No hydronephrosis or nephrolithiasis. Right renal cyst. 2. Diffuse abnormality of the liver. Heterogeneous enhancement. Fatty lesion in the right lobe of th e liver. Recommend further evaluation with MRI of the abdomen with contrast. Radiation optimization: All CT scans at this facility use at least one of these dose optimization james hniques: Automated exposure control mA and/or kV adjustment per patient size (includes targeted exams where dose is matched to clinical indication) or iterative reconstruction. HS:Y
== END 2025-03-08 23:59 | disposition home or self-care (01) ==
LOC: RAD 06:46
PROVIDERS: ATTEND Internal Medicine Hematology & Oncology
DX: K76.9 Liver disease, unspecified (principal); D50.9 Iron deficiency anemia, unspecified; R31.0 Gross hematuria
CPT/HCPCS: 74178; Q9967

== ENCOUNTER 2025-03-10 06:44 | Day surgery (SDC) | payer BC ==
[~2025-03-10] VITALS: Ht 167.6 cm; Wt 59.6 kg
[2025-03-10 08:27] VITALS: BP 117/71; PULSE 82; RESP 16; TEMP 98.7; O2SAT 100
[2025-03-10 08:30] VITALS: RESP 16; O2SAT 100
[2025-03-10] MEDS: dexamethasone sod phosphate 10mg/ml inj IV ONE (08:43)
[2025-03-10] MEDS: diphenhydrAMINE 25mg capsule PO ONE (08:43)
[2025-03-10] MEDS: LORazepam 1 MG tablet PO ONE (08:43)
[2025-03-10] MEDS: FERUMOXYTOL IV ONE (08:44)
[2025-03-10] MEDS: NORMAL SALINE IV ONE (08:44)
== END 2025-03-10 09:15 | disposition home or self-care (01) ==
LOC: SSTAY O 06:44
PROVIDERS: ATTEND Internal Medicine Hematology & Oncology
DX: D50.0 Iron deficiency anemia secondary to blood loss (chronic) (principal); K92.2 Gastrointestinal hemorrhage, unspecified; E03.9 Hypothyroidism, unspecified; Z79.899 Other long term (current) drug therapy; Z88.0 Allergy status to penicillin; Z88.8 Allergy status to other drugs, medicaments and biological substances
CPT/HCPCS: 96374; J1100; Q0163; J7040; J7050

== ENCOUNTER 2025-03-28 05:44 | Day surgery (SDC) | payer BC ==
[~2025-03-28] VITALS: Ht 167.6 cm; Wt 59.1 kg
[2025-03-28] VITALS (7 sets, daily range): BP systolic 81–104; BP diastolic 42–65; PULSE 71–83; RESP 9–16; O2SAT 98–100
[~2025-03-28 05:44] MED LIST changes: +ALPR1TAB7; -ALPR1TAB7 PO; -PHEN-786 PO
[2025-03-28] MEDS ORDERED: fentaNYL/PF 50MCG/1 ML 2ML syringe ONE (08:14)
[2025-03-28] MEDS ORDERED: MIDAZolam 1 MG/ML 5ML VIAL ONE (08:15)
[2025-03-28] MEDS ORDERED: simethicone 40mg/0.6ml oral drops 30ml ONE (08:20)
[2025-03-28] MEDS ORDERED: propofol inj 20 ML IV ONE (08:29)
[2025-03-28] MEDS ORDERED: LIDOcaine 2% (20mg/ml) 5ml vial ONE (08:30)
== END 2025-03-28 09:35 | disposition home or self-care (01) ==
LOC: GI LAB 05:44
PROVIDERS: ATTEND Internal Medicine Gastroenterology
DX: K31.819 Angiodysplasia of stomach and duodenum without bleeding (principal); Z88.0 Allergy status to penicillin; Z88.8 Allergy status to other drugs, medicaments and biological substances; Z79.899 Other long term (current) drug therapy
CPT/HCPCS: 43255; J2003; J2250; J2704; J3010; J7030; Z7512

== ENCOUNTER 2025-04-11 06:52 | Outpatient (CLI) | payer BC ==
--- NOTE | 2025-04-11 16:21 | RADIOLOGY REPORT ---
MRI Abdomen, without IV Contrast Exam Date: 04/11/2025 08:14 AM Comparison: None History: FATTY LIVER Technique: Multisequence multiplanar MRI images were obtained of the abomen. 15 mL of clariscan was administered intravenously during this examination. Initial imaging is obtain ed without intravenous contrast. Findings: Liver: Diffuse hepatic steatosis. Hepatic cysts measuring up to 15 mm. Spleen: Unremarkable. Pancreas: The pancreas is normal in appearance without focal lesions. Gallbladder and ducts: Sludge in the gallbladder. The cystic duct, right and left hepatic ducts, com mon hepatic duct, and common bile ducts are unremarkable. The pancreatic duct is within normal limi ts. Adrenal glands: Unremarkable. Kidneys: Right renal cysts. No hydronephrosis. Visualized bowel: Grossly unremarkable. Vasculature: Unremarkable. Lymphadenopathy: No evidence for lymphadenopathy. Ascites: Absent. Musculoskeletal: Bone marrow signal is normal. IMPRESSION: 1. Diffuse hepatic steatosis. Hepatic cysts, largest in the right lobe of the liver measuring up to 15 mm. Sludge in the gallbladder. Right renal cyst. HS:Payam
[2025-04-11] MEDS ORDERED: GADOTERATE MEGLUMINE 7.5 MMOL/15 ML VIAL IV ONE (19:01)
== END 2025-04-11 23:59 | disposition home or self-care (01) ==
LOC: MRI 06:52
PROVIDERS: ATTEND Family Medicine
DX: K76.0 Fatty (change of) liver, not elsewhere classified (principal); N28.1 Cyst of kidney, acquired; K76.89 Other specified diseases of liver
CPT/HCPCS: 74183; A9575

== ENCOUNTER 2025-04-27 08:46 | Outpatient (CLI) | payer BC ==
[2025-04-27 09:43] LABS: MEAN PLATELET VOLUME 7.0 FL (7.4-10.4); RED CELL DISTRIBUTION WIDTH 14.5 % (11.5-14.5)
[2025-04-27 10:05] LABS: CREATININE 0.63 MG/DL (0.40-0.90); TOTAL CARBON DIOXIDE 26.2 MMOL/L (24-32); eGFR > 90 ML/MIN
[2025-04-27 10:12] LABS: EOSINOPHILS % (MANUAL) 4.0 % (0-6); LYMPHOCYTES % (MANUAL) 39.0 % (21-51); MONOCYTES % (MANUAL) 8.0 % (2-12); NEUTROPHILS % (MANUAL) 49.0 % (42-75); PLATELET ESTIMATE NORMAL
[2025-04-27 10:40] LABS: % IRON SATURATION 7 % (11-46)
[2025-04-28 11:27] LABS: VITAMIN D, 25-HYDROXY 32.3 ng/mL (30.0-100.0)
== END 2025-04-27 23:59 | disposition home or self-care (01) ==
LOC: LAB 08:46
PROVIDERS: ATTEND Internal Medicine Hematology & Oncology
DX: I78.0 Hereditary hemorrhagic telangiectasia (principal); D50.9 Iron deficiency anemia, unspecified; R79.89 Other specified abnormal findings of blood chemistry
CPT/HCPCS: 36415; 80053; 82306; 82607; 82728; 83540; 83550; 84466; 85007; 85025; 85651

== ENCOUNTER 2025-05-01 09:18 | Emergency (ER) | payer BC ==
[~2025-05-01] VITALS: Ht 167.6 cm; Wt 57.8 kg
--- NOTE | 2025-05-01 10:03 | Physician Documentation ---
History of Present Illness ~ General Chief Complaint: Abnormal Lab(s) Stated Complaint: LOW IRON Time Seen by MD: 09:51 Primary Medical Doctor: Sonia Source: patient (8), family History of Present Illness Initial Comments Patient comes in for evaluation of weakness. She has a history of Osler Li Rendu, has required iron infusions in the past, and reports that she had blood work done three days ago showing significantly low ferritin and iron levels. She is scheduled to have an iron infusion tomorrow, but reports that this morning and last night she felt terrible, very lightheaded, weak, fatigued, having a hard time ambulating. She feels mildly short of breath, denies any fever or vomiting. Patient does have a history of daily epistaxis and reports nose bleeding has been heavier than usual. These symptoms are similar to those she has had in the past with low ferritin. She has had some trace red discoloration to her stool without any significant GI bleeding, she reports AVMs in her GI tract and in her chest. She has been seen by specialists out of town, as well as locally by Dr. Scott and both doctors Raul. Medication Reconciliation Allergies: Coded Allergies: Penicillins (Verified Allergy, Unknown, RASH, JOINT PAIN/SWELLING, 05/01/25) iron (Verified Adverse Reaction, Intermediate, hypertension, shaking uncontrollably, felt like passing out, 05/01/25) pre-medicate with steroid and benadryl prior to any dosing. sodium ferric gluconate complex (Unverified Adverse Reaction, Intermediate, ADR, 05/01/25) ADR TO HIGH DOSE:HYPOTENSION,AB PAIN,SWELLING IN HANDS,NAUSEA Scheduled Levothyroxine Sodium (Levothyroxine Sodium), 1 TAB PO DAILY, (Reported) Tranexamic Acid (Lysteda), 1 TAB PO TID, (Reported) Scheduled PRN Zolpidem Tartrate (Ambien), 1 PO PRN PRN for sleep, (Reported) Miscellaneous Medications Alprazolam (Alprazolam), (Reported) Past Medical History Past Medical History: *HEMATOLOGY* (HHT), Hypothyroidism Past Surgical History: appendectomy, orthopedic surgeries Patient History: FH: heart disease FATHER, Age: 73 Hereditary hemorrhagic telangiectasia (HHT) FATHER, Age: 73 Smoking Status: Never smoker Alcohol Use: None Drug Use: none Lives In: Home Occupation: employed Review of Systems All Other Systems at this time: Reviewed and Negative Physical Exam Physical Exam Vital Signs: Temperature: 97.9, Source: Oral, Heart Rate: 89, Respiratory Rate: 18, BP: 153/85, Pulse Oximetry: 100, Weight: 57.800 Oxygen Flow Rate: 0 Physical Exam General: Pt is awake, alert, oriented x4 in no acute distress but acutely ill ap pearing. Head: Normocephalic and atraumatic. Eyes: Conjunctiva normal. ENT: Mucous membranes pale, with some petechiae over the lips Neck: Supple. Chest: Clear to auscultation bilaterally, without rales, rhonchi, or wheezes. There is no accessory muscle use or retractions. Cardiac: Regular rate and rhythm without murmurs, gallops or rubs. Palpation of the chest wall is normal. Abd: Soft, nondistended, nontender, with normoactive bowel sounds. No guarding or rebound. Extremities: Within normal limits without cyanosis, clubbing, or edema. Skin: [place], warm and dry with no significant rash appreciated. Neuro: Cranial nerves II-XII grossly intact. The gait is normal. Progress Progress Note Numerous phone calls to the Pharmacy to coordinate medication orders. Pt has had multiple iron infusions in the past, has had reactions, has an order for infusion tomorrow that we are trying to track down. Infusion orders for short-stay tomorrow, are being compounded and will be infused today through the ED. Results/Orders Results/Orders Completed Orders - CASH FU MD Cbc/Diff (05/01/25 09:36) CMP (05/01/25 09:36) Vital Signs 05/01/25 05/01/25 05/01/25 05/01/25 09:25 10:18 10:20 14:39 Temp 97.9 97.9 97.9 Pulse 89 77 68 Resp 18 13 13 13 B/P (MAP) 153/85 111/75 (87) 96/63 (74) Pulse Ox 100 97 98 O2 Flow Rate 0 0 0 Laboratory Tests Test 05/01/25 10:01 White Blood Count 4.0 L Red Blood Count 4.35 Hemoglobin 11.4 L Hematocrit 35.0 Mean Corpuscular Volume 80.3 Mean Corpuscular Hemoglobin 26.2 L Mean Corpuscular Hemoglobin Concent 32.6 L Red Cell Distribution Width 14.7 H Platelet Count 361 Mean Platelet Volume 7.1 L Neutrophils (%) (Auto) 55.5 Lymphocytes (%) (Auto) 30.4 Monocytes (%) (Auto) 9.5 Eosinophils (%) (Auto) 3.5 Basophils (%) (Auto) 1.1 H Neutrophils # (Auto) 2.2 Lymphocytes # (Auto) 1.2 Monocytes # (Auto) 0.4 Eosinophils # (Auto) 0.1 Basophils # (Auto) 0.0 CBC Comment Sodium Level 139 Potassium Level 4.3 Chloride Level 104 Carbon Dioxide Level 29.7 Anion Gap 5 L Blood Urea Nitrogen 15 Creatinine 0.55 Estimated GFR/1.73 m2 > 90 BUN/Creatinine Ratio 27.3 H Glucose Level 87 Calcium Level 9.2 Total Bilirubin 0.3 Aspartate Amino Transf (AST/SGOT) 26 Alanine Aminotransferase (ALT/SGPT) 39 Alkaline Phosphatase 88 Total Protein 7.0 Albumin 3.7 Globulin 3.3 Albumin/Globulin Ratio 1.1 Chemistry Comments Re-Evaluation Re-Evaluation : Re-Evaluation Time: 15:44 Progress Pt has completed her iron infusion, with premedication as ordered by her PMD (initially for tomorrow). She is stable and without symptoms at this time, reports it usually takes about 2 days to start feeling significantly better. She is ready for discharge. Medical Decision Making Differential Diagnosis Patient came in with a history of Osler Li Rendu, frequent bleeding, and significantly low ferritin as confirmed by lab tests three days ago by her primary care physician and her dirt shoveler. As she was feeling unwell she decided to come in for her infusion early, and it has been administered exactly according to the orders written for tomorrow's scheduled visit. Patient has remained stable, has had no reactions to the medications. Laboratory workup shows no evidence for significant anemia at this time, no blood products infused. She is to follow up with her primary care doctor at her hematologists, understands to return to the emergency department for any worsening of her symptoms. 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 Return immediately to the emergency department if you have any delayed infusion reactions or any other concerns. Referrals: NO PRIMARY CARE PROVIDER (PCP) Education Educated: Patient, Family Educated regarding: diagnosis, treatment Signature Scribe Signature: Attestation: CASH FU MD May 01, 2025 10:03
[2025-05-01 10:12] LABS: MEAN PLATELET VOLUME 7.1 FL (7.4-10.4); RED CELL DISTRIBUTION WIDTH 14.7 % (11.5-14.5)
[2025-05-01 10:35] LABS: CREATININE 0.55 MG/DL (0.40-0.90); TOTAL CARBON DIOXIDE 29.7 MMOL/L (24-32); eCRCL 104 ML/MIN; eGFR > 90 ML/MIN
--- NOTE | 2025-05-01 11:48 | ELECTROCARDIOGRAPH REPORT ---
[facility] Test Date: 2025-05-01 Test Time: 09:35:54 Pat Name: TRINITY BOND Department: EMERGENCY ROOM Room: Gender: F Residential Door Installer: ROBERTO : 1970 Requested By: DEPARTMENT EMERGENCY Order Number: [id number] Reading MD: Dr. Lucio Velasquez Measurements Intervals [place] Rate: 89 P: 71 IL: 157 QRS: 80 QRSD: 90 T: 52 QT: 360 QTc: 439 Interpretive Statements Sinus rhythm Minimal ST depression, inferior leads Electronically Signed On 05-01-2025 19:43:[address] Lucio Velasquez Please click the below link to view image of tracing.
[2025-05-01] MEDS: iron sucrose complex (VENOFER) 200 MG in NS 100ml IV IV ONE (12:43)
[2025-05-01 14:39] VITALS: BP 96/63; PULSE 68; RESP 13; TEMP 97.9; O2SAT 98
== END 2025-05-01 16:01 | disposition home or self-care (01) ==
LOC: EEVIPCON 09:18 → ER 09:18
DX: E61.1 Iron deficiency (principal); I78.0 Hereditary hemorrhagic telangiectasia; R42 Dizziness and giddiness; R53.1 Weakness; R53.83 Other fatigue; R06.02 Shortness of breath; E03.9 Hypothyroidism, unspecified; Z88.0 Allergy status to penicillin; Z88.8 Allergy status to other drugs, medicaments and biological substances; Z90.49 Acquired absence of other specified parts of digestive tract
CPT/HCPCS: 36415; 80053; 85025; 93005; 96365; 96375; 99284; J1756; J2060; J2919; J7030; Q0163

== ENCOUNTER 2025-05-09 10:27 | Outpatient (CLI) | payer BC ==
[~2025-05-09 10:27] MED LIST changes: -LIDOcaine 2% Viscous 15ml cup ONE; -propofol inj 20 ML IV ONE
[2025-05-09 11:07] LABS: MEAN PLATELET VOLUME 7.2 FL (7.4-10.4); RED CELL DISTRIBUTION WIDTH 14.8 % (11.5-14.5)
[2025-05-09 11:35] LABS: CREATININE 0.53 MG/DL (0.40-0.90); TOTAL CARBON DIOXIDE 27.8 MMOL/L (24-32); eGFR > 90 ML/MIN
[2025-05-09] MEDS ORDERED: labetalol 20mg/4ml (5mg/ml) syringe IV PRN (15:05)
[2025-05-09] MEDS ORDERED: morphine 4 MG/ML inj SYRINge IV PRN (15:05)
[2025-05-09] MEDS ORDERED: ringers solution, lacted 1,000 ML IV SCH (15:05)
[2025-05-09] MEDS ORDERED: HYDROmorphone/PF 0.2 MG/ML SYRINGE IV PRN ×2 (15:05)
[2025-05-09] MEDS ORDERED: ondansetron/PF 4mg/2ml inj IV PRN (15:05)
[2025-05-09] MEDS ORDERED: hydrALAZINE 20mg/ml inj. IV PRN (15:05)
[2025-05-09] MEDS ORDERED: acetaminophen 1,000mg/100ml IV 100 ML IV PRN (15:05)
== END 2025-05-09 23:59 | disposition home or self-care (01) ==
LOC: RAD 10:27
PROVIDERS: ATTEND Family Medicine
DX: D50.0 Iron deficiency anemia secondary to blood loss (chronic) (principal); E03.9 Hypothyroidism, unspecified; N95.1 Menopausal and female climacteric states; I78.0 Hereditary hemorrhagic telangiectasia; R79.89 Other specified abnormal findings of blood chemistry
CPT/HCPCS: 36415; 80053; 82672; 84439; 84443; 85025; J0131; J0360; J1171; J2270; J2405; J3490; J7120

== ENCOUNTER → 2025-05-09 | Day surgery (SDC) | payer BC ==
[2025-05-09] VITALS (7 sets, daily range): BP systolic 88–124; BP diastolic 47–66; PULSE 71–81; RESP 12–16; TEMP 98.4; O2SAT 99–100
[~2025-05-09] VITALS: Ht 167.6 cm; Wt 58.3 kg
[~2025-05-09] MED LIST changes: +LIDOcaine 2% Viscous 15ml cup ONE; +propofol inj 20 ML IV ONE
[2025-05-09 11:06] LABS: MEAN PLATELET VOLUME 7.3 FL (7.4-10.4); RED CELL DISTRIBUTION WIDTH 14.8 % (11.5-14.5)
[2025-05-09 11:38] LABS: CREATININE 0.56 MG/DL (0.40-0.90); TOTAL CARBON DIOXIDE 27.7 MMOL/L (24-32); eGFR > 90 ML/MIN
[2025-05-09 12:10] LABS: % IRON SATURATION 7 % (11-46)
[2025-05-11 05:19] LABS: VITAMIN D, 25-HYDROXY 32.3 ng/mL (30.0-100.0)
== END | disposition home or self-care (01) ==
LOC: OR 08:13
PROVIDERS: ATTEND Internal Medicine Gastroenterology
DX: D50.0 Iron deficiency anemia secondary to blood loss (chronic) (principal); K31.811 Angiodysplasia of stomach and duodenum with bleeding; Z79.890 Hormone replacement therapy; Z79.899 Other long term (current) drug therapy; Z88.0 Allergy status to penicillin; Z88.8 Allergy status to other drugs, medicaments and biological substances
CPT/HCPCS: 36415; 43255; 80053; 82306; 82607; 82728; 82948; 83540; 84466; 85025; 85651; J2704; J7040; Z7512; 43227; 83550; A4620

== ENCOUNTER 2025-05-10 11:33 | Outpatient (CLI) | payer BC ==
[2025-05-10 12:37] LABS: MEAN PLATELET VOLUME 7.4 FL (7.4-10.4); RED CELL DISTRIBUTION WIDTH 15.0 % (11.5-14.5)
[2025-05-10 12:53] LABS: % IRON SATURATION 63 % (11-46)
[2025-05-10 13:08] LABS: CREATININE 0.56 MG/DL (0.40-0.90); TOTAL CARBON DIOXIDE 27.9 MMOL/L (24-32); eGFR > 90 ML/MIN
== END 2025-05-10 23:59 | disposition home or self-care (01) ==
LOC: LAB 11:33
PROVIDERS: ATTEND Internal Medicine Hematology & Oncology
DX: I78.0 Hereditary hemorrhagic telangiectasia (principal); D50.9 Iron deficiency anemia, unspecified; R79.89 Other specified abnormal findings of blood chemistry
CPT/HCPCS: 36415; 80053; 82306; 82607; 82728; 83540; 83550; 84466; 85025; 85651

== ENCOUNTER 2025-05-24 09:05 | Outpatient (CLI) | payer BC ==
[2025-05-24 09:58] LABS: MEAN PLATELET VOLUME 7.2 FL (7.4-10.4); RED CELL DISTRIBUTION WIDTH 14.4 % (11.5-14.5)
[2025-05-24 10:24] LABS: CREATININE 0.73 MG/DL (0.40-0.90); TOTAL CARBON DIOXIDE 27.9 MMOL/L (24-32); eGFR 82 ML/MIN
[2025-05-25 15:10] LABS: TESTOSTERONE, SERUM 3 ng/dL (4-50)
== END 2025-05-24 23:59 | disposition home or self-care (01) ==
LOC: LAB 09:05
PROVIDERS: ATTEND Internal Medicine Hematology & Oncology
DX: I70.8 Atherosclerosis of other arteries (principal); D50.9 Iron deficiency anemia, unspecified; K92.2 Gastrointestinal hemorrhage, unspecified; R74.8 Abnormal levels of other serum enzymes; R79.89 Other specified abnormal findings of blood chemistry
CPT/HCPCS: 36415; 80053; 82306; 82607; 82728; 83540; 84402; 84403; 85025

== ENCOUNTER 2025-06-27 07:15 | Outpatient (CLI) | payer BC ==
[2025-06-28 08:02] LABS: MEAN PLATELET VOLUME 6.8 FL (7.4-10.4); RED CELL DISTRIBUTION WIDTH 14.6 % (11.5-14.5)
[2025-06-28 08:25] LABS: CREATININE 0.69 MG/DL (0.40-0.90); TOTAL CARBON DIOXIDE 29.3 MMOL/L (24-32); eGFR 88 ML/MIN
[2025-06-29 13:25] LABS: VITAMIN D, 25-HYDROXY 33.3 ng/mL (30.0-100.0)
== END 2025-06-27 23:59 | disposition home or self-care (01) ==
LOC: LAB 07:15
PROVIDERS: ATTEND Internal Medicine Hematology & Oncology
DX: D50.9 Iron deficiency anemia, unspecified (principal); R79.89 Other specified abnormal findings of blood chemistry; I78.0 Hereditary hemorrhagic telangiectasia
CPT/HCPCS: 36415; 80053; 82306; 82607; 82728; 83540; 84466; 85025; 85651

== ENCOUNTER 2025-06-30 06:46 | Day surgery (SDC) | payer BC ==
[2025-06-30] VITALS (14 sets, daily range): BP systolic 105–137; BP diastolic 63–79; PULSE 76–120; RESP 16; TEMP 98.2; O2SAT 97–100
[~2025-06-30] VITALS: Ht 167.6 cm; Wt 59.0 kg
[2025-06-30] MEDS: iron sucrose complex (VENOFER) 200 MG in NS 100ml IV IV ONE (08:45)
== END 2025-06-30 10:45 | disposition home or self-care (01) ==
LOC: SSTAY O 06:46
PROVIDERS: ATTEND Family Medicine
DX: D50.0 Iron deficiency anemia secondary to blood loss (chronic) (principal); I78.0 Hereditary hemorrhagic telangiectasia
CPT/HCPCS: 96365; 96366; 96375; J1756; J2919; Q0163; A4615; J7030; J7040

== ENCOUNTER 2025-07-21 07:50 | Outpatient (CLI) | payer BC ==
[~2025-07-21 07:50] MED LIST changes: -ALPR1TAB7
[2025-07-21 08:34] LABS: MEAN PLATELET VOLUME 7.0 FL (7.4-10.4); RED CELL DISTRIBUTION WIDTH 16.3 % (11.5-14.5)
[2025-07-21 09:02] LABS: CREATININE 0.56 MG/DL (0.40-0.90); TOTAL CARBON DIOXIDE 31.3 MMOL/L (24-32); eGFR > 90 ML/MIN
[2025-07-22 11:12] LABS: VITAMIN D, 25-HYDROXY 27.4 ng/mL (30.0-100.0)
== END 2025-07-21 23:59 | disposition home or self-care (01) ==
LOC: LAB 07:50
PROVIDERS: ATTEND Internal Medicine Hematology & Oncology
DX: I78.0 Hereditary hemorrhagic telangiectasia (principal); D50.9 Iron deficiency anemia, unspecified; R79.89 Other specified abnormal findings of blood chemistry
CPT/HCPCS: 36415; 80053; 82306; 82607; 82728; 84466; 85025; 85651

== ENCOUNTER 2025-08-02 14:30 | Outpatient (CLI) | payer BC ==
[2025-08-03 07:19] LABS: MEAN PLATELET VOLUME 6.8 FL (7.4-10.4); RED CELL DISTRIBUTION WIDTH 16.0 % (11.5-14.5)
[2025-08-03 07:43] LABS: % IRON SATURATION 42 % (11-46)
== END 2025-08-02 23:59 | disposition home or self-care (01) ==
LOC: RAD 14:30
PROVIDERS: ATTEND Family Medicine
DX: I78.0 Hereditary hemorrhagic telangiectasia (principal); D50.0 Iron deficiency anemia secondary to blood loss (chronic)
CPT/HCPCS: 36415; 82728; 83540; 83550; 85025

== ENCOUNTER 2025-08-16 14:02 | Outpatient (CLI) | payer BC ==
[2025-08-16 14:18] LABS: MEAN PLATELET VOLUME 6.6 FL (7.4-10.4); RED CELL DISTRIBUTION WIDTH 16.2 % (11.5-14.5)
[2025-08-16 14:44] LABS: % IRON SATURATION 3 % (11-46)
== END 2025-08-16 23:59 | disposition home or self-care (01) ==
LOC: RAD 14:02
PROVIDERS: ATTEND Family Medicine
DX: D50.0 Iron deficiency anemia secondary to blood loss (chronic) (principal); I78.0 Hereditary hemorrhagic telangiectasia; R53.83 Other fatigue
CPT/HCPCS: 36415; 82728; 83540; 83550; 85025

== ENCOUNTER 2025-08-18 05:46 | Day surgery (SDC) | payer BC ==
[~2025-08-18] VITALS: Ht 167.6 cm; Wt 59.0 kg
[2025-08-18] VITALS (13 sets, daily range): BP systolic 99–136; BP diastolic 62–90; PULSE 80–103; RESP 16; TEMP 98.2; O2SAT 96–100
[2025-08-18] MEDS: iron sucrose complex (VENOFER) 200 MG in NS 100ml IV IV ONE (08:35)
== END 2025-08-18 10:20 | disposition home or self-care (01) ==
LOC: SSTAY O 05:46
PROVIDERS: ATTEND Family Medicine
DX: D50.0 Iron deficiency anemia secondary to blood loss (chronic) (principal); I78.0 Hereditary hemorrhagic telangiectasia
CPT/HCPCS: 96365; 96366; 96375; J1200; J1756; J2919; J7030

== ENCOUNTER 2025-09-07 07:58 | Outpatient (CLI) | payer BC ==
[2025-09-08 12:05] LABS: MEAN PLATELET VOLUME 6.9 FL (7.4-10.4); RED CELL DISTRIBUTION WIDTH 18.7 % (11.5-14.5)
[2025-09-08 13:13] LABS: PLATELET ESTIMATE NORMAL
[2025-09-08 13:45] LABS: % IRON SATURATION 31 % (11-46)
== END 2025-09-07 23:59 | disposition home or self-care (01) ==
LOC: LAB 07:58
PROVIDERS: ATTEND Family Medicine
DX: D50.0 Iron deficiency anemia secondary to blood loss (chronic) (principal); R53.83 Other fatigue
CPT/HCPCS: 36415; 82728; 83540; 83550; 85008; 85025

== ENCOUNTER 2025-09-13 14:40 | Outpatient (CLI) | payer BC | END 2025-09-13 23:59 | disposition home or self-care (01) | LOC: LAB 14:40 | PROVIDERS: ATTEND Physician Assistant | DX: D50.0 Iron deficiency anemia secondary to blood loss (chronic) (principal); N95.9 Unspecified menopausal and perimenopausal disorder | CPT/HCPCS: 36415; 82670; 84144; 84402 ==

== ENCOUNTER 2025-09-14 09:36 | Outpatient (CLI) | payer BC ==
[2025-09-14 10:29] LABS: MEAN PLATELET VOLUME 7.2 FL (7.4-10.4); RED CELL DISTRIBUTION WIDTH 19.5 % (11.5-14.5)
[2025-09-14 10:56] LABS: PLATELET ESTIMATE INCREASED
[2025-09-14 11:09] LABS: % IRON SATURATION 7 % (11-46)
== END 2025-09-14 23:59 | disposition home or self-care (01) ==
LOC: LAB 09:36
PROVIDERS: ATTEND Family Medicine
DX: D50.0 Iron deficiency anemia secondary to blood loss (chronic) (principal); I78.0 Hereditary hemorrhagic telangiectasia
CPT/HCPCS: 82728; 83540; 83550; 85008; 85025

== ENCOUNTER 2025-09-15 05:31 | Day surgery (SDC) | payer BC ==
[~2025-09-15] VITALS: Ht 167.6 cm; Wt 59.0 kg
[2025-09-15 07:30] VITALS: BP 113/72; PULSE 88; RESP 16; TEMP 98.3; O2SAT 100
[2025-09-15] MEDS: iron sucrose complex (VENOFER) 200 MG in NS 100ml IV IV ONE (07:33)
[2025-09-15 07:43] VITALS: BP 98/63; PULSE 81; RESP 16; O2SAT 100
[2025-09-15] MEDS ORDERED: normal saline 1000ml 1,000 ML IV SCH (07:43)
[2025-09-15 08:00] VITALS: BP 98/66; PULSE 80; RESP 16; O2SAT 100
[2025-09-15 08:30] VITALS: BP 97/65; PULSE 80; RESP 16; O2SAT 100
[2025-09-15 08:42] VITALS: BP 106/63; PULSE 81; RESP 16; O2SAT 100
== END 2025-09-15 08:45 | disposition home or self-care (01) ==
LOC: SSTAY O 05:31
PROVIDERS: ATTEND Family Medicine
DX: D50.0 Iron deficiency anemia secondary to blood loss (chronic) (principal); I78.0 Hereditary hemorrhagic telangiectasia
CPT/HCPCS: 96365; 96375; J1200; J1756; J2919; J7030